=== PATIENT | male | born 1960 | race Caucasian/White ===

== ENCOUNTER 2019-04-03 01:12 | Outpatient (CLI) | payer BC, SELFPAY ==
[2019-04-03 09:17] LABS: ALT 51 U/L (12-78); AST 35 U/L (15-37); Albumin 3.7 g/dL (3.4-5.0); Alkaline Phosphatase 58 U/L (46-116); Anion Gap 12.2 mmol/L (3-11); BUN 12 mg/dL (7-18); Bilirubin, Total 0.3 mg/dL (0.2-1.0); CO2 24.8 mmol/L (21.0-32.0); CREATININE 1.02 mg/dL (0.70-1.30); Calcium 9.2 mg/dL (8.5-10.1); Chloride 94 mmol/L (98-107); Cholesterol 221 mg/dL (50-200); Glucose 99 mg/dL (70-100); HDL Cholesterol 53 mg/dL (40-60); LDL CHOLESTEROL 120 mg/dL (<100); Potassium 4.3 mmol/L (3.5-5.1); Sodium 131 mmol/L (136-145); Total Protein 7.2 g/dL (6.4-8.2); Triglyceride 258 mg/dL (30-150)
[2019-04-03 09:37] LABS: Uric Acid 0.6 mg/dL (3.5-7.2)
== END 2019-04-03 01:32 ==
DX: Z00.00 Encounter for general adult medical examination without abnormal findings (principal); Z13.228 Encounter for screening for other metabolic disorders; Z13.220 Encounter for screening for lipoid disorders; Z13.89 Encounter for screening for other disorder
CPT/HCPCS: 36415; 80053; 80061; 83721; 84550

== ENCOUNTER 2020-06-01 04:08 | Outpatient (CLI) | payer OTHER, SELFPAY ==
[2020-06-01 12:37] LABS: ALT 52 U/L (16-63); AST 36 U/L (15-37); Albumin 3.9 g/dL (3.4-5.0); Alkaline Phosphatase 50 U/L (46-116); Anion Gap 11.7 mmol/L (3-11); BUN 15 mg/dL (7-18); Bilirubin, Total 0.3 mg/dL (0.2-1.0); CO2 24.3 mmol/L (21.0-32.0); CREATININE 0.98 mg/dL (0.70-1.30); Calcium 9.4 mg/dL (8.5-10.1); Calculated LDL 134 mg/dL (<100); Chloride 96 mmol/L (98-107); Cholesterol 219 mg/dL (<200); Glucose 101 mg/dL (74-106); HDL Cholesterol 57 mg/dL (40-60); Potassium 4.6 mmol/L (3.5-5.1); Sodium 132 mmol/L (136-145); Total Protein 7.3 g/dL (6.4-8.2); Triglyceride 142 mg/dL (<150)
== END 2020-06-01 04:28 ==
DX: I10 Essential (primary) hypertension (principal); Z00.00 Encounter for general adult medical examination without abnormal findings; Z13.220 Encounter for screening for lipoid disorders; M1A.0720 Idiopathic chronic gout, left ankle and foot, without tophus (tophi)
CPT/HCPCS: 36415; 80053; 80061

== ENCOUNTER 2020-07-17 23:59 | Emergency (ER) | payer OTHER, SELFPAY ==
[2020-07-18 00:01] VITALS: BP 156/90; PULSE 91; RESP 18; TEMP 36.6; O2SAT 100
--- NOTE | 2020-07-18 00:08 | W.ED.GENAD ---
Discharge Plan Disposition Patient Disposition: HOME Condition: Stable Discharge Details Chief Complaint: HeadInjury Clinical Impression: Laceration of scalp, Head injury, acute, without loss of consciousness, Bleeding of blood vessel Primary Care Provider: Norah Frey ED Provider: Fadumo Aguilar Home Meds and New Rx's Prescriptions: Continued montelukast 10 mg tablet 10 mg PO QPM Qty: 90 RF: 4 lisinopril 10 mg tablet 10 mg PO DAILY Qty: 90 RF: 4 allopurinol 100 mg tablet 100 mg PO DAILY Qty: 90 RF: 4 Discharge Instructions Instructions: Head Injury (ED), Contusion in Adults (ED) Additional Instructions: Keep wound clean and dry. Cover wound with bandage if risk of contamination. Otherwise you can keep the wound open to air if resting at home to allow edges to dry and heal. Follow-up with your primary care doctor or return to the emergency department in 10 days for suture removal. Drink plenty of fluids and get plenty of rest. Take Tylenol as needed and directed for pain. Avoid excessive screen time such as TV, phones or laptops as this may cause a headache. Return immediately to the emergency department if you develop any worsening or new concerning symptoms. Discharge Data Discharge Date/Time-TO BE ENTERED AT DEPARTURE: 07/18/20 02:30 Discharge Physician: Fadumo Aguilar Medical Decision Making 12am -- 59-year-old male with history of daily alcohol abuse presents for mechanical fall down a flight of stairs with head injury after drinking 12 beers throughout the day today. Blood pressure hypertensive, patient alert and oriented, clinically sober. He has a large hematoma to the right side frontoparietal region of his scalp. No other evidence of trauma. No midline spinal tenderness. Lungs clear. Chest and abdomen nontender. No focal deficits. Moving all extremities. Dose of Boostrix ordered. Will refer for CT head/cervical spine/facial bones in addition to chest x-ray and pelvis x-ray. 0130 --after return from radiology, head bandage removed and pulsatile arterial bleeding noted to right frontoparietal scalp. Bleeding stopped with 3 Prolene 5-0 sutures. Remainder of head and neck cleaned and no additional lacerations or active bleeding noted. 0210 --imaging reviewed and negative for acute findings. CT head notes a hematoma with minimal amount of gas within wound. Chest x-ray and pelvis x-ray negative. Case discussed with patient's daughter and his girlfriend Kasia over the phone who were informed of results. Patient was able to ambulate around the ED with normal gait and no acute complaints. Patient picked up by his son and daughter. Advised to return to the ED or primary care doctor in 10 days for suture removal. Medical Records Medical records reviewed: Yes I reviewed the patient's medical records. Imaging Data Radiologic Study: Radiologist's impression: XR Chest, 1 View Exam date and time: 07/18/2020 01:05 Age: 59 years old Clinical indication: Injury or trauma; Initial encounter; Blunt trauma (contusions or hematomas); Injury date: 07/18/20; Injury details: S/P fall, R/O acute disease TECHNIQUE: Imaging protocol: XR of the chest Views: 1 view. COMPARISON: No relevant prior studies available. FINDINGS: Lungs: No consolidation. Pleural space: No significant pleural effusion. No pneumothorax. Heart/Mediastinum: No cardiomegaly. Bones/joints: No acute fracture. IMPRESSION: No acute cardiopulmonary pathology. XR Pelvis Exam date and time: 07/18/2020 01:03 Age: 59 years old Clinical indication: Injury or trauma; Initial encounter; Blunt trauma (contusions or hematomas); Does not apply; Pelvic region; Injury date: 07/18/20; Injury details: Fall down stairs R/O acute FX TECHNIQUE: Imaging protocol: XR pelvis. Views: 1 or 2 view. COMPARISON: No relevant prior studies available. FINDINGS: Bones/joints: No acute fracture or subluxation. Mild degenerative changes in the hips. Soft tissues: Unremarkable. IMPRESSION: No acute bony pathology. CT Head Without Contrast Exam date and time: 07/18/2020 12:48 AM Age: 59 years old Clinical indication: Injury or trauma; Initial encounter; Consciousness not specified; Blunt trauma (contusions or hematomas) and laceration; Without residual foreign body; Injury date: 07/18/20; Injury details: Fall down steps, hematoma R forehead; Patient HX: R/O acute face/intracranial inj/cervical FX TECHNIQUE: Imaging protocol: Computed tomography of the head without contrast. Radiation optimization: All CT scans at this facility use at least one of these dose optimization techniques: automated exposure control; mA and/or kV adjustment per patient size (includes targeted exams where dose is matched to clinical indication); or iterative reconstruction. COMPARISON: No relevant prior studies available. FINDINGS: Brain: Normal. No hemorrhage. Unremarkable white matter. No mass effect. Ventricles: Normal. No ventriculomegaly. Bones/joints: Unremarkable. No acute fracture. Sinuses: Visualized sinuses are unremarkable. No fluid levels. Mastoid air cells: Visualized mastoid air cells are well aerated. Soft tissues: Right anterior scalp soft tissue swelling and hematoma with minimal soft tissue gas. IMPRESSION: Right anterior scalp soft tissue swelling and hematoma with minimal soft tissue gas. no acute intracranial findings. CT Maxillofacial Without Contrast Exam date and time: 07/18/2020 12:48 AM Age: 59 years old Clinical indication: Injury or trauma; Initial encounter; Consciousness not specified; Blunt trauma (contusions or hematomas) and laceration; Without residual foreign body; Injury date: 07/18/20; Injury details: Fall down steps, hematoma R forehead; Patient HX: R/O acute face/intracranial inj/cervical FX TECHNIQUE: Imaging protocol: Computed tomography images of the face without contrast. Radiation optimization: All CT scans at this facility use at least one of these dose optimization techniques: automated exposure control; mA and/or kV adjustment per patient size (includes targeted exams where dose is matched to clinical indication); or iterative reconstruction. COMPARISON: No relevant prior studies available. FINDINGS: Orbits: Orbits are normal. Globes are unremarkable. Bones/joints: No acute fracture. Sinuses: Mucosal thickening and secretions in the maxillary sinuses. Soft tissues: Unremarkable. IMPRESSION: No acute finding. CT Cervical Spine Without Contrast Exam date and time: 07/18/2020 12:48 AM Age: 59 years old Clinical indication: Injury or trauma; Initial encounter; Consciousness not specified; Blunt trauma (contusions or hematomas) and laceration; Without residual foreign body; Injury date: 07/18/20; Injury details: Fall down steps, hematoma R forehead; Patient HX: R/O acute face/intracranial inj/cervical FX TECHNIQUE: Imaging protocol: Computed tomography images of the cervical spine without contrast. Radiation optimization: All CT scans at this facility use at least one of these dose optimization techniques: automated exposure control; mA and/or kV adjustment per patient size (includes targeted exams where dose is matched to clinical indication); or iterative reconstruction. COMPARISON: No relevant prior studies available. FINDINGS: Vertebrae: No acute fracture. Normal alignment. Multilevel degenerative disk disease and facet arthropathy with neuroforaminal and canal stenosis.. Soft tissues: Unremarkable. Lungs: Lung apices are normal. IMPRESSION: No acute findings. HPI General Mode of arrival: EMS. Date/Time Provider Initiated Documentation: 07/18/20 00:28. Limitations to Documentation: no limitations. Information obtained by: patient. HPI Narrative: Patient is a 59-year-old male with a history of gout, hypertension hyperlipidemia who presents for head injury after mechanical fall down a flight of stairs prior to arrival. Patient states he drank approximately 12 beers throughout the day today and missed a step while going down his cellar stairs and fell and hit the right side of his head on concrete. He denies LOC, vomiting but does admit to some headache. He is unsure of his tetanus status. He denies any neck pain, chest pain, abdominal pain, shortness of breath or extremity pain or injury. Related Data Home Medications Medication Instructions Recorded Confirmed allopurinol 100 mg tablet 100 mg PO DAILY #90 tab-cap 06/07/20 07/18/20 lisinopril 10 mg tablet 10 mg PO DAILY #90 tab-cap 06/07/20 07/18/20 montelukast 10 mg tablet 10 mg PO QPM #90 tab 06/07/20 07/18/20 Previous Rx's Medication Instructions Recorded allopurinol 100 mg tablet 100 mg PO DAILY #90 tab-cap 06/07/20 lisinopril 10 mg tablet 10 mg PO DAILY #90 tab-cap 06/07/20 montelukast 10 mg tablet 10 mg PO QPM #90 tab 06/07/20 Allergies Allergy/AdvReac Type Severity Reaction Status Date / Time aspirin Allergy Severe Hives Verified 07/18/20 00:09 clindamycin Allergy Intermediate Rash, Verified 07/18/20 00:09 redness doxycycline Allergy Intermediate Rash, Verified 07/18/20 00:09 redness doxycycline hyclate Allergy Intermediate Rash, Verified 07/18/20 00:09 [From Doryx] redness sulfacetamide Allergy Intermediate Rash, Verified 07/18/20 00:09 redness General Stated Complaint: HeadInjury EVA: 2 Review of Systems All systems reviewed & are unremarkable except as noted in HPI and below Constitutional Constitutional: Reports as per HPI, Denies chills, Denies fever(s) and Reports headache(s) Eyes Eyes: Denies blurry vision ENT Ears, Nose, Mouth, and Throat: Denies dizziness, Reports headache(s), Denies sore throat and Denies throat swelling Cardiovascular Cardiovascular: Denies chest pain and Denies dyspnea Respiratory Respiratory: Denies cough and Denies dyspnea Gastrointestinal Gastrointestinal: Denies abdominal pain, Denies diarrhea and Denies vomiting Genitourinary Genitourinary: Denies hematuria and Denies dysuria Musculoskeletal Musculoskeletal: Denies back pain and Denies numbness Integumentary/Breasts Skin/Breast: Denies lesions and Denies rash Neurologic Neurologic: Denies dizziness, Reports headache(s), Denies localized weakness and Denies numbness Allergic/Immunologic Allergic/Immunologic: Denies throat swelling [facility] Medical History (Updated 07/18/20 @ 02:14 by Fadumo Aguilar DO) Chronic gout of left foot (Chronic 11/28/17) Encounter for annual physical exam (Acute) Essential hypertension (Chronic 02/07/17) Gout Hyperlipidemia (Acute) Insomnia disorder (Acute) Skin mole (Acute) Surgical History Repair of inguinal hernia Repair of umbilical hernia Family History Mother , 53 Throat cancer Father , 87 COPD (chronic obstructive pulmonary disease) Heart disease Sister No problems noted. Sister Breast cancer Sister Breast cancer Maternal Grandfather No problems noted. Paternal Grandfather No problems noted. Maternal Grandmother No problems noted. Paternal Grandmother No problems noted. Son No problems noted. Daughter No problems noted. Social History Smoking/Tobacco Use Status: Former Tobacco Use Quit status: quit date established Second Hand Exposure: No Alcohol Intake: current Alcohol Intake frequency: 3 or more drinks per day Alcohol type: beer Drug use: Never Substance use type: does not use Counseling given: No Counseling provided: none Caregiver/Support person: No Household members: significant other and children Housing: house Do you need help understanding health information?: Never Pets and animals: Yes Pets and animals: dog(s) and horse(s) Sexually active: Yes Do you think of yourself as: straight/heterosexual Current gender identity: male What is your relationship status?: living with partner How often do you talk on the phone with friends or family?: once per week How often do you get together with friends or relatives?: once per week How often do you attend islam or alevism services?: decline to answer Do you belong to any clubs or organized social groups?: no Panel score (0-1 are the most socially isolated patients): 1 What type of physical activity do you participate in: decline to answer Duration: decline to answer Frequency: decline to answer Sylvie/Congregational: Taoist Special sylvie needs: No Seatbelt use: always Helmet use: Yes Helmet use: always Drive 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 Hematoma. There is a boggy area in center Ears: hearing grossly normal bilaterally, external ears normal and TM's normal bilaterally General nose exam: external nose normal Face and sinus: normal facial exam Mouth: oral mucosae normal Teeth and gingiva: dentition normal Throat: posterior oropharynx normal Eyes General: appearance normal, both eyes and all related structures Eyelids: eyelids normal Pupils: PERRL EOM: EOM intact bilaterally Neck Neck: normal visual inspection Lymphatic: no lymphadenopathy noted Chest Chest: normal inspection of the chest, normal palpation of entire chest wall and no tenderness Resp Effort & Inspection: normal respiratory effort and able to speak in complete sentences Auscultation: clear to auscultation bilaterally Cardio Rate: regular rate Rhythm: regular rhythm GI Inspection: normal to inspection Palpation: soft, not firm, no guarding, no hepatosplenomegaly, no masses and nontender Auscultation: normal bowel sounds Back/Spine/Pelvis Back: no CVA tenderness Skin General skin exam: no rashes or lesions noted Neuro General: patient alert, patient awake and patient oriented x3 Cognition: normal cognition Speech: speech normal Gait: normal gait Motor: muscle tone normal throughout and strength 5/5 throughout Sensory Exam: no sensory deficits noted Extrem General: normal to inspection, full ROM and capillary refill normal Psych Appearance: grossly normal Mental Status: mental status grossly normal Speech and Movement: speech and movement normal Affect: normal affect Thought Process: normal Course Vital Signs Vital signs: Vital Signs Temperature 97.9 F 07/18/20 00:01 Pulse 91 H 07/18/20 00:01 Respiratory Rate 18 07/18/20 00:01 Blood Pressure 156/90 H 07/18/20 00:01 Pulse Oximetry 100 07/18/20 00:01 Temperature 97.9 F 07/18/20 00:01 Temperature Source Temporal Artery Scan 07/18/20 00:01 Pulse 91 H 07/18/20 00:01 Respiratory Rate 18 07/18/20 00:01 Blood Pressure 156/90 H 07/18/20 00:01 Blood Pressure Position Supine 07/18/20 00:01 Pulse Oximetry 100 07/18/20 00:01 Oxygen Delivery Method Room Air 07/18/20 00:01 Oxygen Flow Rate 0 07/18/20 00:01 Procedures Laceration Laceration 1: Site: scalp Side (If applicable): right Size (cm): 0.2 Description: other (pinpoint arterial bleeding) Depth: simple, single layer Local Anesthetic: Lidocaine 1% and with Epi Amount of anesthesia used (mL): 6 Pre-repair: wound explored, irrigated extensively and deep structures intact Skin layer closed with: other (prolene) Size (cm): 5-0 Number of sutures: 3 Technique: other (overlapping to close arterial bleed)
--- NOTE | 2020-07-18 00:15 | DI.RAD_ITS ---
EXAM: XR PELVIS AP CLINICAL HISTORY: s/p fall down steps, r/o acute fracture. TECHNIQUE: 2D digital imaging was performed. COMPARISON: No exams were available for comparison FINDINGS: BONES: No acute fracture is present. No bony destructive lesion is seen. JOINTS: No dislocation present. Mild superior hip joint space narrowing is present. Mild degenerative changes both hips. SOFT TISSUE: Normal. IMPRESSION: Unremarkable radiographs of the pelvis. DATA REPOSITORY: RADIATION DOSE DELIVERED:
--- NOTE | 2020-07-18 00:15 | DI.CT_ITS ---
EXAM: CT HEAD CERV SPINE FACIAL WO CLINICAL HISTORY: fall down steps, hematoma R forehead. TECHNIQUE: Imaging Protocol: Axial computed tomography images with coronal and sagittal reformatted images were created and reviewed COMPARISON: No exams were available for comparison FINDINGS: Head CT Ventricles and Extra axial spaces: Normal in size and morphology for the patient's age. Hemorrhage: None. Cerebral parenchyma: Normal. Midline shift: None. Brainstem/Cerebellum: Normal. Calvarium: Normal. Right anterior scalp soft tissue swelling and laceration. Visualized Paranasal sinuses/Mastoids: Opacification of the right maxillary sinus. Mucous retention at the floor of the left maxillary sinus. Mastoid air cells are clear.. Cervical Spine CT BONES: Vertebral body heights are maintained. Alignment is normal. There is no evidence of acute frac ture. Degenerative disc changes and facet degenerative changes are seen . SOFT TISSUES: No paraspinal hematoma. The airway appears intact. No pneumothorax is seen at the lung apices. Facial CT: No facial fracture is seen. The globes appear intact. There is opacification of the right maxillary sinus and mucous retention at the floor of the left maxillary sinus. There is some mucosal thickeni ng ethmoid air cells. There is dental disease. IMPRESSION: Head CT: Scalp hematoma. No acute intracranial abnormality. C-spine CT: Degenerative changes, no acute abnormality. Facial CT: No fracture. Sinus disease. Incidental RADIATION DOSE DELIVERED: LINK-TO-SR Total DLP DATA REPOSITORY: All CT scans at this facility are submitted to the National Radiology Data Registry (NRDR) Dose Index Registry (DIR) with the [employer] (ACR). RADIATION OPTIMIZATION: All CT scans at this facility use at least one of these dose optimization te chniques: automated exposure control; mA and/or kV adjustment per patient size (includes targeted exa ms where dose is matched to clinical indication); or iterative reconstruction.
--- NOTE | 2020-07-18 01:10 | DI.RAD_ITS ---
EXAM: XR CHEST 1V IN DI DEPT CLINICAL HISTORY: s/p fall, r/o acute disease TECHNIQUE: 2D digital imaging was performed. COMPARISON: No exams were available for comparison FINDINGS: LUNGS: Clear. No pleural abnormality seen. HEART: Normal. MEDIASTINUM: Normal. OTHER FINDINGS: None. IMPRESSION: No acute pulmonary findings. DATA REPOSITORY: RADIATION DOSE DELIVERED:
--- NOTE | 2020-07-18 01:18 | DI.VRAD_ITS ---
PROCEDURE INFORMATION: Exam: XR Pelvis Exam date and time: 07/18/2020 01:03 Age: 59 years old Clinical indication: Injury or trauma; Initial encounter; Blunt trauma (contusions or hematomas); Does not apply; Pelvic region; Injury date: 07/18/20; Injury details: Fall down stairs R/O acute FX TECHNIQUE: Imaging protocol: XR pelvis. Views: 1 or 2 view. COMPARISON: No relevant prior studies available. FINDINGS: Bones/joints: No acute fracture or subluxation. Mild degenerative changes in the hips. Soft tissues: Unremarkable. IMPRESSION: No acute bony pathology. Dictated and Authenticated by: Eliana Riley MD. Ordering:PROMISE Thorne MD
--- NOTE | 2020-07-18 01:19 | DI.VRAD_ITS ---
PROCEDURE INFORMATION: Exam: CT Head Without Contrast Exam date and time: 07/18/2020 12:48 AM Age: 59 years old Clinical indication: Injury or trauma; Initial encounter; Consciousness not specified; Blunt trauma (contusions or hematomas) and laceration; Without residual foreign body; Injury date: 07/18/20; Injury details: Fall down steps, hematoma R forehead; Patient HX: R/O acute face/intracranial inj/cervical FX TECHNIQUE: Imaging protocol: Computed tomography of the head without contrast. Radiation optimization: All CT scans at this facility use at least one of these dose optimization techniques: automated exposure control; mA and/or kV adjustment per patient size (includes targeted exams where dose is matched to clinical indication); or iterative reconstruction. COMPARISON: No relevant prior studies available. FINDINGS: Brain: Normal. No hemorrhage. Unremarkable white matter. No mass effect. Ventricles: Normal. No ventriculomegaly. Bones/joints: Unremarkable. No acute fracture. Sinuses: Visualized sinuses are unremarkable. No fluid levels. Mastoid air cells: Visualized mastoid air cells are well aerated. Soft tissues: Right anterior scalp soft tissue swelling and hematoma with minimal soft tissue gas. IMPRESSION: Right anterior scalp soft tissue swelling and hematoma with minimal soft tissue gas. no acute intracranial findings. PROCEDURE INFORMATION: Exam: CT Maxillofacial Without Contrast Exam date and time: 07/18/2020 12:48 AM Age: 59 years old Clinical indication: Injury or trauma; Initial encounter; Consciousness not specified; Blunt trauma (contusions or hematomas) and laceration; Without residual foreign body; Injury date: 07/18/20; Injury details: Fall down steps, hematoma R forehead; Patient HX: R/O acute face/intracranial inj/cervical FX TECHNIQUE: Imaging protocol: Computed tomography images of the face without contrast. Radiation optimization: All CT scans at this facility use at least one of these dose optimization techniques: automated exposure control; mA and/or kV adjustment per patient size (includes targeted exams where dose is matched to clinical indication); or iterative reconstruction. COMPARISON: No relevant prior studies available. FINDINGS: Orbits: Orbits are normal. Globes are unremarkable. Bones/joints: No acute fracture. Sinuses: Mucosal thickening and secretions in the maxillary sinuses. Soft tissues: Unremarkable. IMPRESSION: No acute finding. PROCEDURE INFORMATION: Exam: CT Cervical Spine Without Contrast Exam date and time: 07/18/2020 12:48 AM Age: 59 years old Clinical indication: Injury or trauma; Initial encounter; Consciousness not specified; Blunt trauma (contusions or hematomas) and laceration; Without residual foreign body; Injury date: 07/18/20; Injury details: Fall down steps, hematoma R forehead; Patient HX: R/O acute face/intracranial inj/cervical FX TECHNIQUE: Imaging protocol: Computed tomography images of the cervical spine without contrast. Radiation optimization: All CT scans at this facility use at least one of these dose optimization techniques: automated exposure control; mA and/or kV adjustment per patient size (includes targeted exams where dose is matched to clinical indication); or iterative reconstruction. COMPARISON: No relevant prior studies available. FINDINGS: Vertebrae: No acute fracture. Normal alignment. Multilevel degenerative disk disease and facet arthropathy with neuroforaminal and canal stenosis.. Soft tissues: Unremarkable. Lungs: Lung apices are normal. IMPRESSION: No acute findings. Dictated and Authenticated by: Hilton Jeffers MD. Ordering:PROMISE Thorne MD
--- NOTE | 2020-07-18 01:20 | DI.VRAD_ITS ---
PROCEDURE INFORMATION: Exam: XR Chest, 1 View Exam date and time: 07/18/2020 01:05 Age: 59 years old Clinical indication: Injury or trauma; Initial encounter; Blunt trauma (contusions or hematomas); Injury date: 07/18/20; Injury details: S/P fall, R/O acute disease TECHNIQUE: Imaging protocol: XR of the chest Views: 1 view. COMPARISON: No relevant prior studies available. FINDINGS: Lungs: No consolidation. Pleural space: No significant pleural effusion. No pneumothorax. Heart/Mediastinum: No cardiomegaly. Bones/joints: No acute fracture. IMPRESSION: No acute cardiopulmonary pathology. Dictated and Authenticated by: Eliana Riley MD. Ordering:PROMISE Thorne MD
== END 2020-07-18 02:30 | disposition home or self-care (01) ==
LOC: ER 07-18 03:01
PROVIDERS: Emergency Provider Physician Assistant
DX: S01.01XA Laceration without foreign body of scalp, initial encounter (principal); S09.90XA Unspecified injury of head, initial encounter; S29.9XXA Unspecified injury of thorax, initial encounter; S30.91XA Unspecified superficial injury of lower back and pelvis, initial encounter; W10.8XXA Fall (on) (from) other stairs and steps, initial encounter; F10.10 Alcohol abuse, uncomplicated; I10 Essential (primary) hypertension
CPT/HCPCS: 90471; 99284; 70450; 70486; 71045; 72125; 72170; 99285

== ENCOUNTER 2021-07-25 01:06 | Outpatient (CLI) | payer OTHER, SELFPAY ==
[2021-07-25 12:40] LABS: ALT 57 U/L (16-63); AST 40 U/L (15-37); Alkaline Phosphatase 58 U/L (46-116); Anion Gap 11.9 mmol/L (3-11); BUN 12 mg/dL (7-18); Bilirubin, Total 0.6 mg/dL (0.2-1.0); CO2 23.1 mmol/L (21.0-32.0); CREATININE 1.1 mg/dL (0.70-1.30); Chloride 95 mmol/L (98-107); Cholesterol 230 mg/dL (<200); Glucose 101 mg/dL (74-106); HDL Cholesterol 36 mg/dL (40-60); Potassium 5.3 mmol/L (3.5-5.1); Sodium 130 mmol/L (136-145); Total Protein 7.7 g/dL (6.4-8.2); Triglyceride 424 mg/dL (<150)
[2021-07-25 12:43] LABS: Calcium 9.1 mg/dL (8.5-10.1)
[2021-07-25 12:53] LABS: LDL CHOLESTEROL 105 mg/dL (<100)
== END 2021-07-25 01:07 | disposition home or self-care (01) ==
LOC: LOS 01:06
DX: I10 Essential (primary) hypertension (principal); F10.10 Alcohol abuse, uncomplicated; Z00.00 Encounter for general adult medical examination without abnormal findings
CPT/HCPCS: 36415; 80053; 80061; 83721

== ENCOUNTER 2022-07-31 01:29 | Outpatient (CLI) | payer BC, SELFPAY ==
[2022-07-31 12:57] LABS: ALT 55 U/L (16-63); AST 40 U/L (15-37); Albumin 3.8 g/dL (3.4-5.0); Alkaline Phosphatase 51 U/L (46-116); Anion Gap 10.3 mmol/L (3-11); BUN 9 mg/dL (7-18); Bilirubin, Total 0.5 mg/dL (0.2-1.0); CO2 23.7 mmol/L (21.0-32.0); Calcium 9.5 mg/dL (8.5-10.1); Calculated LDL 130 mg/dL (<100); Chloride 94 mmol/L (98-107); Cholesterol 220 mg/dL (<200); Estimated GFR 86.16 (mL/min/1.73m2); Glucose 100 mg/dL (74-106); HDL Cholesterol 66 mg/dL (40-60); Sodium 128 mmol/L (136-145); Total Protein 8.1 g/dL (6.4-8.2); Triglyceride 120 mg/dL (<150)
== END 2022-07-31 01:30 | disposition home or self-care (01) ==
LOC: LOS 01:30
DX: E78.5 Hyperlipidemia, unspecified (principal); Z00.00 Encounter for general adult medical examination without abnormal findings
CPT/HCPCS: 36415; 80053; 80061

== ENCOUNTER 2023-04-16 08:20 | Outpatient (CLI) | payer BC, SELFPAY ==
--- NOTE | 2023-04-16 08:15 | RT.EKG_ITS ---
APPROVED REPORT Exam: Resting ECG Reason for Exam: fatigue Patient Location: O HR:96 bpm ECG Measurements Heart Rate 96 AXIS AR 162 P 78 QRSd 95 QRS -78 QT 361 T 57 QTc 457 Conclusion Sinus rhythm...normal P axis, V-rate 50- 99 Left anterior fascicular block Low voltage
== END 2023-04-16 08:21 | disposition home or self-care (01) ==
LOC: DI.CM 08:22
PROVIDERS: PCP Nurse Practitioner Family; Visit Provider Nurse Practitioner Family
DX: R00.0 Tachycardia, unspecified (principal); G93.32 Myalgic encephalomyelitis/chronic fatigue syndrome
CPT/HCPCS: 93010

== ENCOUNTER 2023-04-16 19:18 | Outpatient (REF) | payer BC, SELFPAY ==
[2023-04-16 13:06] LABS: Abs Immature Grans 0.01 10^3/uL (0.0-0.06); Absolute Basophil Count 0.03 10^3/uL (0.0-0.2); Absolute Eosinophil Count 0.01 10^3/uL (0.0-0.7); Absolute Lymphocyte Count 0.91 10^3/uL (1.2-3.4); Absolute Neutrophil Count 2.36 10^3/uL (1.2-6.7); Basophils % 0.8; Eosinophils % 0.3; HCT 43.6 % (40.0-50.0); HGB 16.1 g/dL (13.5-17.5); Immature Grans % 0.3; Lymphocytes % 23.8; MCH 33.5 pg (27.0-33.0); MCHC 36.9 % (32.0-36.0); MCV 91 fL (80-95); MPV 9.9 fL (8.0-11.0); Monocytes % 13.1; Neutrophils % 61.7; Platelet Count 103 10^3/uL (130-400); RDW 13.2 % (11.8-14.1); RDW-SD 44.3 fL; WBC 3.82 10^3/uL (4.4-10.8)
[2023-04-16 14:05] LABS: Albumin 3.4 g/dL (3.4-5.0); Alkaline Phosphatase 139 U/L (46-116); Anion Gap 12.3 mmol/L (3-11); BUN 9 mg/dL (7-18); Bilirubin, Total 1.8 mg/dL (0.2-1.0); CO2 21.7 mmol/L (21.0-32.0); CREATININE 0.9 mg/dL (0.70-1.30); Chloride 88 mmol/L (98-107); Estimated GFR 97.17 (mL/min/1.73m2); Glucose 130 mg/dL (74-106); Potassium 3.9 mmol/L (3.5-5.1); TSH (W/Ref FT4) 1.22 uIU/mL (0.36-3.74)
[2023-04-16 15:57] LABS: ALT 530 U/L (16-63); AST 917 U/L (15-37); Sodium 122 mmol/L (136-145)
== END 2023-04-16 19:19 | disposition home or self-care (01) ==
LOC: LBN 19:18
PROVIDERS: PCP Nurse Practitioner Family; Visit Provider Nurse Practitioner Family
DX: R53.83 Other fatigue (principal); R63.4 Abnormal weight loss
CPT/HCPCS: 80053; 84443; 85025

== ENCOUNTER 2023-04-19 00:21 | Outpatient (CLI) | payer BC, SELFPAY ==
--- NOTE | 2023-04-19 06:30 | DI.CT_ITS ---
Exam(s) CT CHEST/ABD/PEL W EXAM: CT CHEST/ABD/PEL W CLINICAL HISTORY: increasing sx for 15 months,abnl wt loss,abnl labs,r63.4 TECHNIQUE: Imaging Protocol: Axial computed tomography images with coronal and sagittal reformatted images were created and reviewed CONTRAST MATERIAL: Intravenous: Omnipaque 350 contrast volume:100 mL Oral: Yes COMPARISON: CR,XR XR CHEST 1V IN DI DEPT from 07/18/2020 FINDINGS: CHEST: Tracheobronchial tree: Patent where visualized. Pulmonary parenchyma: No consolidation or dominant measurable mass. No architectural distortion. Visualized thyroid gland: Unremarkable. Mediastinum and Jennifer: No dominant adenopathy or fluid collection. The esophagus is unremarkable. Pleura: No effusion or pneumothorax. Heart: The heart is not dilated. No coronary artery calcifications are seen. No pericardial effusion. Pulmonary arteries: No central or 1st order pulmonary embolus is identified. Aorta: Thoracic aorta non-dilated. Mild atherosclerosis. No evidence of dissection. Lymph nodes: Within normal limits. Soft tissues: Unremarkable. Bones:Within normal limits for the patient's age. ABDOMEN: Liver: There is decreased attenuation of the liver suggesting fatty infiltration. There is hepatomeg anurag. No measurable mass. Portal, Superior Mesenteric, and Splenic Veins: Unremarkable. Gallbladder and Biliary Tract: No radiodense calculus or dilation. Pancreas: Normal density, no abnormal calcifications or inflammatory process. Spleen: Normal. Adrenals: No masses seen. Kidneys: Normal size, contour and axis. No radiodense stones or obstructive uropathy. No masses seen. Abdominal Aorta: Abdominal portion non-dilated. Atherosclerosis. Bowel: No obstruction or bowel wall thickening. Appendix is unremarkable. Peritoneal Cavity: No ascites, collection or mesenteric inflammatory response. No free air. Lymph Nodes: Within normal limits. Bones: Within normal limits for the patient's age. Soft Tissues: Unremarkable. PELVIS: Bladder: Symmetric distention, no gross wall thickening. Reproductive Organs: Unremarkable as visualized. Lymph Nodes: Within normal limits. Bones: Within normal limits. No aggressive osseous lesions are seen in the bones. IMPRESSION: 1. No acute pulmonary process. 2. Hepatomegaly and fatty infiltration of the liver. 3. No acute abdominal or pelvic process. RADIATION DOSE DELIVERED: 1,200.37mGy.cm Total DLP DATA REPOSITORY: All CT scans at this facility are submitted to the National Radiology Data Registry (NRDR) Dose Index Registry (DIR) with the [employer] (ACR). RADIATION OPTIMIZATION: All CT scans at this facility use at least one of these dose optimization te chniques: automated exposure control; mA and/or kV adjustment per patient size (includes targeted exa ms where dose is matched to clinical indication); or iterative reconstruction.
[2023-04-19] MEDS: Barium Sulfate 2% W/V-Berry Smoothie 450 ML BTL PO ×2 (08:37→08:38)
[2023-04-19] MEDS: Omnipaque 350 MG/ML 100 ML BTL IJ (10:06)
[2023-04-19] MEDS: Normal Saline Flush 10 ML SYR IJ (10:12)
[2023-04-19 10:40] LABS: Sodium, Urine 37 mmol/L
[2023-04-19 20:09] LABS: Osmolality, Urine 576 mOsm/kg (150-1150)
[2023-04-22 11:22] LABS: Lyme Ab w Rflx to Lyme Confirm Negative (Negative)
[2023-04-22 11:25] LABS: Hepatitis A Antibody IgM Negative (Negative); Hepatitis B Core Antibody Negative (Negative); Hepatitis B surface Ag Negative (Negative); Hepatitis C Ab w Rflx HCV PCR Negative (Negative)
[2023-04-23 17:19] LABS: Anaplasma phagocytophilum Negative (Negative); B. miyamotoi PCR Negative (Negative); Babesia divergens/MO-1 Negative (Negative); Babesia duncani Negative (Negative); Babesia microti Negative (Negative); Ehrlichia chaffeensis Negative (Negative); Ehrlichia ewingii/canis Negative (Negative); Ehrlichia muris eauclairensis Negative (Negative)
== END 2023-04-19 00:41 ==
LOC: DI 00:22
PROVIDERS: PCP Nurse Practitioner Family; Visit Provider Nurse Practitioner Family
DX: R93.2 Abnormal findings on diagnostic imaging of liver and biliary tract (principal); R79.89 Other specified abnormal findings of blood chemistry; R63.4 Abnormal weight loss; R53.83 Other fatigue
CPT/HCPCS: 74177; 83935; 86704; 86709; 86803; 87340; 87798; 71260; 84300; 86618; J3490

== ENCOUNTER 2023-04-26 12:40 | Outpatient (REF) | payer BC, SELFPAY ==
[2023-04-26 12:45] LABS: Lab Add On Test DONE
[2023-04-26 13:04] LABS: Abs Immature Grans 0.02 10^3/uL (0.0-0.06); Absolute Basophil Count 0.04 10^3/uL (0.0-0.2); Absolute Eosinophil Count 0.02 10^3/uL (0.0-0.7); Absolute Lymphocyte Count 0.78 10^3/uL (1.2-3.4); Absolute Monocyte Count 0.69 10^3/uL (0.1-0.8); Eosinophils % 0.5; HGB 14.1 g/dL (13.5-17.5); Immature Grans % 0.5; Lymphocytes % 20.3; MCH 34.1 pg (27.0-33.0); MCHC 37.1 % (32.0-36.0); MCV 92 fL (80-95); MPV 9.8 fL (8.0-11.0); Monocytes % 17.9; Neutrophils % 59.8; Platelet Count 128 10^3/uL (130-400); RBC 4.14 10^6/uL (4.36-5.78); RDW 13.2 % (11.8-14.1); RDW-SD 44.7 fL; WBC 3.85 10^3/uL (4.4-10.8)
[2023-04-26 13:16] LABS: Albumin 2.9 g/dL (3.4-5.0); Alkaline Phosphatase 147 U/L (46-116); Anion Gap 9.8 mmol/L (3-11); BUN 10 mg/dL (7-18); Bilirubin, Total 0.8 mg/dL (0.2-1.0); CO2 23.2 mmol/L (21.0-32.0); CREATININE 0.8 mg/dL (0.70-1.30); Calcium 7.9 mg/dL (8.5-10.1); Chloride 91 mmol/L (98-107); Estimated GFR 100.69 (mL/min/1.73m2); Glucose 147 mg/dL (74-106); Potassium 4.1 mmol/L (3.5-5.1); Total Protein 7.1 g/dL (6.4-8.2)
[2023-04-26 13:21] LABS: Sodium 124 mmol/L (136-145)
[2023-04-26 13:30] LABS: ALT 63 U/L (16-63); AST 200 U/L (15-37)
[2023-04-26 13:32] LABS: Hemoglobin A1C 5.3 % (<5.7)
[2023-04-27 11:19] LABS: HIV-1/2 Ag & Ab Screen Negative (Negative)
== END 2023-04-26 12:41 | disposition home or self-care (01) ==
LOC: LBN 12:40
PROVIDERS: PCP Nurse Practitioner Family; Visit Provider Nurse Practitioner Family
DX: R63.4 Abnormal weight loss (principal); R79.89 Other specified abnormal findings of blood chemistry
CPT/HCPCS: 80053; 87389; 83036; 85025

== ENCOUNTER 2023-05-29 00:28 | Outpatient (CLI) | payer BC, SELFPAY ==
--- NOTE | 2023-05-29 08:45 | DI.US_ITS ---
APPROVED REPORT EXAM: Comprehensive 2D, Doppler, and color-flow Echocardiogram Patient Location: Out-Patient Supercalender Operator: Eric Frost RDMS, RVT Indications: increasing fatigue, essential HTN, old myocardial infarct Other Information Study Quality: Fair. Technically limited study due to body habitus. Conclusion Normal left ventricular wall thickness and chamber size. Ejection fraction is 60 to 65%. The wall m otion is hyperdynamic Normal right ventricular size and systolic function Both atria are normal in size There is no structural or hemodynamically significant valvular disease Estimated right ventricular systolic pressure is 22 mmHg Wall motion Left Ventricle Technically limited parasternal imaging. The left ventricle visually appears grossly normal in size. The left ventricular systolic function is normal. The left ventricular ejection fraction is within th e normal range. Ventricle is hyperdynamic There is no ventricular septal defect visualized. LVEF is 6 0-65%. Right Ventricle The right ventricle is normal size. The RVSP is 22.2mmHg. Atria The left atrium size is normal. The right atrium size is normal. The interatrial septum is intact wit h no evidence for an atrial septal defect. Aortic Valve Aortic valve is trileaflet. There is no aortic valvular stenosis. No aortic regurgitation is present. Mitral Valve The mitral valve is normal in structure. No evidence of mitral valve stenosis. There is no mitral elvin ve regurgitation noted. Tricuspid Valve The tricuspid valve is normal in structure. There is no tricuspid valve stenosis. Mild tricuspid regu rgitation. Pulmonic Valve The pulmonary valve is normal in structure. There is no pulmonic valvular stenosis. There is no pulmo tony valvular regurgitation. Great Vessels The aortic root is normal in size. Ascending aorta is not well visualized. Aortic arch is not well vi sualized. IVC is normal in size and collapses >50% with inspiration. Pericardium There is no pericardial effusion. 2D Dimensions Ao Root d 4.05 cm M: 3.1 - 3.7 LV Vol A2C d MOD 57.5 mL LVEF (Vann's) 60.43 % M: 52 - 72 LV Vol A4C d MOD 56.3 mL LV Volume 43.31 mL M: 62 - 150 LV EF A4C MOD 59.0 % LV Volume Index 22.55 mL/m2 M: 34 - 74 LV EF A2C MOD 61.9 % LV Vol Biplane MOD 56.9 mL LV EF Biplane MOD 60.4 % SV 34.40 mL SV Index 17.94 mL/m2 M-Mode TAPSE 2.10 cm (M/F) >1.7 LV Diastology MV E' medial 0.135 (>0.07 m/s) E/A Ratio 0.7 LV E/e MED 4.10 (<14) MV E Vmax 0.56 (0.4-1.3 m/s) MV E' lateral 0.090 (>0.1 m/s) MV A Vmax 0.80 (0.4-1.3 m/s) LV E/e LAT 6.20 (<14) MV E/A Ratio 0.70 MV E/E' medial 4.12 MV E/E' lateral 6.22 Aortic Valve LVOT Area 3.91 cm2 AoV Area Vmax 3.75 cm2 LVOT Vmax 0.95 m/s AoV Area/ BSA (Vmax) 1.95 cm2/m2 LVOT Mean Leland. 0.60 m/s LORA Mean Leland. 3.30 cm2 LVOT Peak Grad 3.6 mmHg LORA Mean Leland. Index 1.72 cm2/m2 LVOT Mean Grad 1.7 mmHg LVOT VTI 0.171 m LVOT Diam s 2.20 cm AoV Vmax 0.99 m/s Velocity Ratio 0.96 AoV Mean Leland. 0.71 m/s AoV Peak Grad 4.0 mmHg LVOT SV 67.01 mL AoV Mean Grad 2.2 mmHg AoV VTI 0.152 m AoV Area VTI 4.39 cm2 AoV Area/ BSA (VTI) 2.29 cm/m2 Mitral Valve MV DT 137 (160-240 msec) MV PHT 40 msec MV Area PHT 5.55 cm2 MV VTI 0.216 m MV Area VTI 3.10 (4.0-6.0 cm2) Tricuspid Valve TR Peak Grad 19.1 mmHg TR Vmax 2.19 m/s RA Pressure 3.00 mmHg RVSP (TR) 22.2 mmHg
== END 2023-05-29 00:48 ==
PROVIDERS: PCP Nurse Practitioner Family; Visit Provider Nurse Practitioner Family
DX: I10 Essential (primary) hypertension (principal); I25.2 Old myocardial infarction; R53.83 Other fatigue
CPT/HCPCS: 93306

== ENCOUNTER 2023-06-06 06:03 | Day surgery (SDC) | payer BC, SELFPAY ==
--- NOTE | 2023-06-05 21:50 | W.COLOREPORT ---
Date of service: 06/06/23 Time of Service: 08:29 Colonoscopy Report Date of procedure: 06/06/23 Pre-op diagnosis general: +colocgurad Post-op diagnosis procedure note: same Surgeon: Kendal Byrnes Anesthesia Type: General:No Airway Estimated blood loss (mL): 0 Pathology: other Complications: None Disposition: same day Prep: Miralax/Dulcolax Retraction Time: 11 Procedure Description: After informed consent was obtained the patient was taken to the procedure room and placed in a left decubitous position. Monitors were applied and a time out was done. The patients name, date of , procedure, allergies to medications and metal in their body was reviewed. The patient was then sedated. Once sedated and comfortable a rectal exam was done. External exam was normal. Internal exam revealed a normal sphincter tone and no palpable masses. The scope was then introduced and retrofelexed. No internal hemorrhoids were identified. The scope was then advanced to the cecum w/out difficulty. The TI and appendiceal orifice were identified. The prep was BBPS 3 in the left colon and BBPS 2 in the transverse and right colon for a total of 7. The scope was then slowly retracted over 11 minutes back into the rectum. There are no polyps, AVMs, diverticula visualized. The scope was removed and the patient was woken up and taken back to Same day surgery in stable condition. The patient tolerated the procedure well and there were no immediate complications. Follow up: The patient should follow up in 10 years unless they develop changes in bowel habits or other new gastrointestinal complaints.
--- NOTE | 2023-06-05 21:51 | PDOC.DSDIS_ITS ---
Date of service: 06/06/23 Time of Service: 08:34 Discharge Plan Disposition Patient Disposition: Home Condition: Good Discharge Details Reason For Visit: olon and stomach scope Attending Provider: Kendal Byrnes Primary Care Provider: Kaushik Thibodeaux Home Meds and New Rx's Prescriptions: New pantoprazole [Protonix] 40 mg tablet,delayed release (DR/EC) 40 mg PO DAILY Qty: 30 12RF Continued allopurinol 100 mg tablet 100 mg PO DAILY Qty: 90 4RF loratadine [Allergy Relief (loratadine)] 10 mg tablet See Rx Instructions .ROUTE .COMPLEX Qty: 90 4RF Dose Instruction: TAKE 1 TABLET BY MOUTH DAILY Rx Instructions: TAKE 1 TABLET BY MOUTH DAILY lisinopril 10 mg tablet 10 mg PO DAILY Qty: 90 3RF montelukast 10 mg tablet 10 mg PO DAILY Discontinued polyethylene glycol 3350 17 gram/dose powder 238 g PO ONCE Qty: 238 0RF Rx Instructions: take per colonoscopy instructions bisacodyl [Dulcolax (bisacodyl)] 5 mg tablet,delayed release (DR/EC) 5 mg PO ONCE Qty: 4 0RF Rx Instructions: take per colonoscopy instructions Discharge Instructions Instructions: GERD (Gastroesophageal Reflux Disease) (GEN) Additional Instructions: DSU Colonoscopy Post- Op Instructions Instructions for Everyone who is given Anesthesia: For your safety, please do the following for the next twenty-four (24) hours: *Do Not operate a motor vehicle (car, truck, motorcycle, etc.) *Do Not drink alcoholic beverages or use any recreational drugs for the first 24 hours or while taking pain medications. The medications in your body may have a reaction that can be dangerous. *Do Not make any important decisions or sign any important papers. Findings: -gastritis -esophagitis Continue with lifestyle modifications: no alcohol, tobacco products, Aspirin or NSAID's (ibuprofen, Motrin, Naprosyn, aleve, etc), soda pop/any carbonated beverages, caffeine (including tea & chocolate), and acidic foods, (tomatoes, citrus, onions, peppermints) spicy or fried/fatty foods. Do not lie down for 30 minutes after eating, and do not eat 2 hours prior to bedtime. Avoid wearing tight fitting clothing/ belts. Stop drinking alcohol. Follow up: PCP in 2 weeks time 1. No lifting over 20 pounds or strenuous activity for the first 24 hours after your procedure. After 24 hours there are no restrictions on your activity but you may feel fatigued for a few days. 2. After you arrive home you may have a light meal and return to your normal diet as you can tolerate it without feeling sick to your stomach. 3. You may have a bloated, gaseous feeling in your belly (abdomen) after a colonoscopy. Passing gas and belching will help. Walking or lying down on your left side with your knees flexed may relieve the discomfort. Call the office at [phone] (Office) or [phone] (Hospital) right away if you notice any of the following: a.Vomiting of blood or ?coffee ground stools?. b.Rectal bleeding 1Tbsp, blood clots or continuous bleeding. c.Severe belly (abdominal) pain. d.A hard distended belly (abdomen) and an inability to pass gas. 4. Please don?t expect to have a normal BM (bowel movement) for 2-3 days after your procedure. 5. If there are questions regarding the findings of your procedure, please contact your doctor 6. If you are unable to contact your doctor with a problem, contact the hospital at [phone]. 7. Continue all your regular medications unless directed otherwise. I understand the above instructions and have no questions. Signature of Patient or Adult Escort Name of Responsible Adult Escort Signature of Nurse Date/Time Stand Alone Forms: Anesthesia Discharge Kory Foyjosh (DSU) Activity:: See above Diet:: See above Discharge Orders Discharge Orders: Discharge Order (Routine); Ordered 06/06/23 Ordered By: Kendal Byrnes DS: Diagnosis Discharge Diagnosis (1) Positive colorectal cancer screening using Cologuard test: Status: Acute Asessment and Plan: The patient is seen and examined after their colonoscopy.? The patient has been able to pass gas.? They are not having abdominal pain.? They have been able to tolerate liquids and a snack.? They do not have any nausea or vomiting.? They are not having any chest pain or shortness of breath.??? They are not having any rectal bleeding. Their vital signs have been stable-see nursing notes. We discussed findings during their colonoscopy, and any biopsies that were done/polyps that were removed. The patient will be sent a letter with any biopsy results, and when to repeat the colonoscopy.-see discharge instructions. Patient was given explicit instructions to follow-up regarding colonoscopy-refer to discharge instructions.? We reviewed resumption of medications. Patient verbalized understanding and discharged in stable and satisfactory condition- See nursing notes. (2) Alcohol consumption of one to four drinks per day on alcohol screening: Status: Chronic (3) Encounter for annual physical exam: Status: Acute (4) Fatigue: Status: Acute (5) Weight loss: Status: Acute (6) Myocardial infarct, old: Status: Acute (7) Elevated liver function tests: Status: Acute
[2023-06-06] VITALS (7 sets, daily range): BP systolic 98–127; BP diastolic 69–89; PULSE 82–104; RESP 16–20; TEMP 36.3–36.7; O2SAT 100; BMI 20.7
--- NOTE | 2023-06-06 06:33 | ANES.PREOP_ITS ---
General Info Date of Service Date Performed: 06/06/23 Height: 5 ft 11 in Weight: 67.4 kg Body Mass Index (BMI): 20.7 Surgical Procedure: Operation Date: 06/06/23 07:35 Proposed Procedure Side Surgeon p Colonoscopy/Gastroscopy Kendal Byrnes, DO Meds Allergies and Home Medications Allergies Allergy/AdvReac Type Severity Reaction Status Date / Time aspirin Allergy Severe Hives Verified 06/06/23 06:18 clindamycin Allergy Intermediate Rash, Verified 06/06/23 06:18 redness doxycycline Allergy Intermediate Rash, Verified 06/06/23 06:18 redness doxycycline hyclate Allergy Intermediate Rash, Verified 06/06/23 06:18 [From Doryx] redness sulfacetamide Allergy Intermediate Rash, Verified 06/06/23 06:18 redness Home Medication Medication Instructions Recorded allopurinol 100 mg tablet 100 mg PO DAILY #90 tab-caps 09/05/22 loratadine 10 mg tablet (Allergy See Rx Instructions .Route 01/22/23 Relief (loratadine)) .COMPLEX #90 tabs lisinopril 10 mg tablet 10 mg PO DAILY #90 tab-caps 02/12/23 montelukast 10 mg tablet 10 mg PO DAILY 06/05/23 Current Visit Medications: Current Medications Generic Name Dose Route Start Last Admin Trade Name Freq PRN Reason Stop Dose Admin Hyoscyamine Sulfate 0.125 mg 06/06/23 08:03 Hyoscyamine 0.125 Mg Sl/Oral/Chew SL 07/06/23 08:02 DIRECTED PRN Ringer's Solution 1,000 mls @ 80 mls/hr 06/06/23 06:00 IV 07/05/23 23:59 [facility] IV Miscellaneous Supplies 1 each 06/06/23 06:00 Iv Access IV 07/05/23 23:59 DIRECTED SIENNA Ondansetron HCl 4 mg 06/06/23 20:03 Ondansetron 4 Mg/2 Ml Vial IVP 07/06/23 20:02 Q4H PRN PRN Nausea / Vomiting Sodium Chloride 0 ml 06/06/23 06:00 Normal Saline Flush 10 Ml Syr IV 07/05/23 23:59 PRN PRN Sodium Chloride 0 ml 06/06/23 06:00 Normal Saline 10 Ml Vial IJ 07/05/23 23:59 DIRECTED PRN Sterile Water 0 ml 06/06/23 06:00 Water,Injection,Sterile 10 Ml Vial IJ 07/05/23 23:59 DIRECTED PRN PFSH Active Problems Active Problems: Problem Status Onset Code Positive colorectal cancer screening using Cologuard test R19.5 Essential hypertension 02/07/17 I10 Chronic gout of left foot 11/28/17 M1A.0720 Alcohol consumption of one to four drinks per day on alcohol screening Z13.39 Encounter for annual physical exam Z00.00 Hyperlipidemia E78.5 Skin mole D22.9 Insomnia disorder G47.00 Hyponatremia E87.1 Fatigue R53.83 Weight loss R63.4 Myocardial infarct, old I25.2 Tachycardia R00.0 Elevated liver function tests R79.89 Medical History Medical History Gout Infected tooth URI, acute Surgical History Surgical History Repair of inguinal hernia Repair of umbilical hernia Tobacco Smoking/Tobacco Use Status: Former Tobacco Use Smokeless tobacco user: snuff Passive smoking exposure: Yes Second hand exposure: No Alcohol Alcohol Intake: current Alcohol intake frequency: 3 or more drinks per day Alcohol type: beer Substance Use Substance use: Never Substance use type: does not use Counseling provided: none Vital Signs and Lab Results Vital Signs Most Recent Vital Signs in EMR: Most Recent Vital Signs Temp Pulse Resp BP Pulse Ox 36.7 C 104 H 16 119/88 100 06/06/23 06:20 06/06/23 06:20 06/06/23 06:20 06/06/23 06:20 06/06/23 06:20 Lab Results Blood Type / Crossmatch: No Data to Display Complete Blood Count: No Data to Display Complete Metabolic Panel: No Data to Display Liver Function Panel: No Data to Display Coagulation Panel: No Data to Display Cardiac Panel: No Data to Display Arterial Blood Gas: No Data to Display Venous Blood Gas: No Data to Display Pancreas Panel: No Data to Display Thyroid Panel: No Data to Display Infectious Disease: No Data to Display Blood Cultures: No Data to Display Toxicology Panel: No Data to Display Imaging and Studies Imaging and Studies Study information below may be from another EMR and interpreted by another provider. Please see original notes in EMR for more complete details. EKG Summary: EKG PATIENT NAME: Gracy Fall #: [id number] ORDERING PROVIDER: Kaushik Thibodeaux NPACCOUNT #: [id number] PRIMARY CARE PROVIDER:Kaushik Pierce DNP DATE/TIME OF SERVICE: 04/16/23840 : 1960ERFORMING LOCATION: . APPROVED REPORT Exam: Resting ECG Reason for Exam: fatigue Patient Location: O HR:96 bpm ECG Measurements Heart Rate 96 AXIS MT 162 P 78 QRSd 95 QRS -78 QT 361 T57 QTc 457 Conclusion Sinus rhythm...normal P axis, V-rate 50- 99 Left anterior fascicular block Low voltage <Electronically signed by ROBERT VYAS MD in OV> E-Sign Date: 04/16/23 E-Sign Time: 0949 Echocardiogram Summary: atient Name: Gracy Fall #: [id number]: Ordering Provider: Kaushik Thibodeaux NPAccount #: [id number]: REG CLI Primary Care Provider: Kaushik Thibodeaux NPDate of Exam: 05/29/23Sex: M Admission Date: 05/29/23 : 1960 Age: 62 APPROVED REPORT EXAM: Comprehensive 2D, Doppler, and color-flow Echocardiogram Patient Location: Out-Patient Physics Professor: Eric Frost RDMS, RVT Indications: increasing fatigue, essential HTN, old myocardial infarct Other Information Study Quality: Fair. Technically limited study due to body habitus. Conclusion Normal left ventricular wall thickness and chamber size. Ejection fraction is 60 to 65%. The wall motion is hyperdynamic Normal right ventricular size and systolic function Both atria are normal in size There is no structural or hemodynamically significant valvular disease Estimated right ventricular systolic pressure is 22 mmHg Wall motion Left Ventricle Technically limited parasternal imaging. The left ventricle visually appears grossly normal in size. The left ventricular systolic function is normal. The left ventricular ejection fraction is within the normal range. Ventricle is hyperdynamic There is no ventricular septal defect visualized. LVEF is 60-65%. Right Ventricle The right ventricle is normal size. The RVSP is 22.2mmHg. Atria The left atrium size is normal. The right atrium size is normal. The interatrial septum is intact with no evidence for an atrial septal defect. Aortic Valve Aortic valve is trileaflet. There is no aortic valvular stenosis. No aortic regurgitation is present. Mitral Valve The mitral valve is normal in structure. No evidence of mitral valve stenosis. There is no mitral valve regurgitation noted. Tricuspid Valve The tricuspid valve is normal in structure. There is no tricuspid valve stenosis. Mild tricuspid regurgitation. Pulmonic Valve The pulmonary valve is normal in structure. There is no pulmonic valvular stenosis. There is no pulmonic valvular regurgitation. Great Vessels The aortic root is normal in size. Ascending aorta is not well visualized. Aortic arch is not well visualized. IVC is normal in size and collapses >50% with inspiration. Pericardium There is no pericardial effusion. 2D Dimensions Ao Root d 4.05 cm M: 3.1 - 3.7LV Vol A2C d MOD 57.5 mL LVEF (Vann's)60.43 % M: 52 - 72LV Vol A4C d MOD 56.3 mL LV Jxtqbd00.31 mL M: 62 - 150LV EF A4C MOD 59.0 % LV Volume Index22.55 mL/m2 M: 34 - 74LV EF A2C MOD 61.9 % LV Vol Biplane MOD 56.9 mLLV EF Biplane MOD 60.4 % SV34.40 mL SV Index17.94 mL/m2 M-Mode TAPSE 2.10 cm (M/F) >1.7 LV Diastology MV E' medial0.135 (>0.07 m/s)E/A Ratio 0.7 LV E/e MED4.10 (<14)MV E Vmax 0.56 (0.4-1.3 m/s) MV E' lateral0.090 (>0.1 m/s)MV A Vmax 0.80 (0.4-1.3 m/s) LV E/e LAT6.20 (<14)MV E/A Ratio 0.70 MV E/E' medial 4.12 MV E/E' lateral6.22 Aortic Valve LVOT Area3.91 cm2AoV Area Vmax3.75 cm2 LVOT Vmax 0.95 m/sAoV Area/ BSA (Vmax)1.95 cm2/m2 LVOT Mean Leland.0.60 m/sAVA Mean Lleand.3.30 cm2 LVOT Peak Grad 3.6 mmHgAVA Mean Leland. Index1.72 cm2/m2 LVOT Mean Grad 1.7 mmHg LVOT VTI0.171 m LVOT Diam s 2.20 cm AoV Vmax0.99 m/s Velocity Ratio 0.96 AoV Mean Leland.0.71 m/s AoV Peak Grad4.0 mmHg LVOT SV 67.01 mL AoV Mean Grad2.2 mmHg AoV VTI0.152 m AoV Area VTI4.39 cm2 AoV Area/ BSA (VTI)2.29 cm/m2 Mitral Valve MV DT 137 (160-240 msec) MV PHT40 msec MV Area PHT 5.55 cm2 MV VTI 0.216 m MV Area VTI 3.10 (4.0-6.0 cm2) Tricuspid Valve TR Peak Grad 19.1 mmHgTR Vmax 2.19 m/s RA Pressure 3.00 mmHg RVSP (TR) 22.2 mmHg Ordered By: Kaushik Thibodeaux NP CC: Dictated By: Robert Vyas M.D. 05/29/23 1612 <Electronically signed by Robert Vyas M.D. in [place]> 05/30/23 3626 Transcribed By: Robert Vyas MD Anesthesia Assessment and Plan Anesthesia History Personal History: No History of Anesthesia Complications Family History: No Family History of Anesthesia Complications Exercise Tolerance Exercise Tolerance: Metabolic Equivalents>4 Pertinent Negatives Pertinent Negatives: No Symptoms of GERD, No Major Cardiovascular Symptoms or Complaints, No Major Pulmonary Symptoms or Complaints and No History of CVA/TIA Cardiac & Pulmonary Exam Cardiac Exam: Normal S1/S2 Heart Sounds Pulmonary Exam: Clear Bilateral Breath Sounds Implantable Cardiac Device Does patient have a Pacemaker or an ICD?: No Airway Exam Known Difficult Airway: No Mallampati Class: 3 Mouth Opening: Narrow (< 3cm) (very limited TMJ in the past) Thyromental Distance: Greater than 3 cm Neck Range of Motion: Full ROM Neck Circumference: Normal Teeth Condition: Generalized Poor Dentition and Loose or Chipped (Chipped front teeth: did discuss previous damage to front teeth with small mouth opening and bite block has increased risk of damage to his teeth. ) ASA Classification ASA Score: ASA 2 Emergency Case?: No NPO Status NPO Status: NPO Clears >2 hours, Solids >8 hours Anesthesia Plan Resuscitation Status: Full Code Anesthesia Technique: General Anesthesia Airway Planned: Natural Airway Monitors Used: Standard Monitors
[2023-06-06] MEDS: Lactated Ringers 1,000 ML 80 ML IV (07:25)
[2023-06-06 07:33] LABS: Abs Immature Grans 0.02 10^3/uL (0.0-0.06); Absolute Basophil Count 0.03 10^3/uL (0.0-0.2); Absolute Eosinophil Count 0.03 10^3/uL (0.0-0.7); Absolute Monocyte Count 0.69 10^3/uL (0.1-0.8); Absolute Neutrophil Count 3.72 10^3/uL (1.2-6.7); Basophils % 0.6; Eosinophils % 0.6; HCT 34.4 % (40.0-50.0); HGB 12.6 g/dL (13.5-17.5); Immature Grans % 0.4; Lymphocytes % 11.8; MCHC 36.6 % (32.0-36.0); MCV 96 fL (80-95); MPV 8.4 fL (8.0-11.0); Monocytes % 13.6; Platelet Count 148 10^3/uL (130-400); RDW 14.8 % (11.8-14.1); RDW-SD 51.4 fL; WBC 5.09 10^3/uL (4.4-10.8)
--- NOTE | 2023-06-06 07:50 | STOM_PTH ---
PATIENT: Ben Fall LOC: [facility] U#:[id number] AGE/SX: 62/M ROOM: RE06/06/[address]: Kendal Byrnes : 1960 BED: DIS: 06/06/2023 SPEC #: [id number] RECD: 06/06/23 15:33 STATUS: RENE REMikhail #: [id number] PANDA: 06/06/23 07:[address]: Kendal Byrnes DEPT: Surgical Specimen RECD BY: Sepideh Cheney ENTERED: 06/06/23 15:34 SP TYPE: STOMACH OTHR DR: Kaushik Pierce, JOO Tissues: 1 - BIOPSY BOWEL 2 - BIOPSY BOWEL 3 - STOMACH BIOPSY 4 - STOMACH BIOPSY 5 - ESOPHAGUS BIOPSY 6 - ESOPHAGUS BIOPSY 7 - BIOPSY BOWEL Procedures: GROSS AND MICRO LEVEL 4 Comments: [id number]
[2023-06-06 08:10] LABS: Vitamin D 25 Total 61.3 ng/mL (30-100)
[2023-06-06 08:16] LABS: Iron 161 ug/dL (65-175); Total Iron Binding Capacity 142 ug/dL (250-450); Transferrin Sat 113 % (20-55)
[2023-06-06 08:23] LABS: ALT 102 U/L (16-63); Albumin 3.1 g/dL (3.4-5.0); Alkaline Phosphatase 227 U/L (46-116); Anion Gap 11.7 mmol/L (3-11); BUN 6 mg/dL (7-18); Bilirubin, Total 1.9 mg/dL (0.2-1.0); CO2 21.3 mmol/L (21.0-32.0); CREATININE 1.1 mg/dL (0.70-1.30); Chloride 94 mmol/L (98-107); Estimated GFR 76.37 (mL/min/1.73m2); Glucose 157 mg/dL (74-106); Potassium 3.6 mmol/L (3.5-5.1); Sodium 127 mmol/L (136-145); Total Protein 7.6 g/dL (6.4-8.2); Vitamin B12 865 pg/mL (193-986)
--- NOTE | 2023-06-06 08:31 | W.PM.ENDDOP ---
Date of service: 06/06/23 Time of Service: 08:31 Endoscopy Report DATE OF PROCEDURE: 06/06/23 PRE-OP DIAGNOSIS: Loss of appetite and early satiety POST-OP DIAGNOSIS: same SURGEON: Kendal Byrnes ANESTHESIA TYPE: General:No Airway ESTIMATED BLOOD LOSS: 1 PATHOLOGY: other COMPLICATIONS: None DISPOSITION: PACU PROCEDURE DESCRIPTION: Were exchanged and we proceeded to review colonoscopy. Normal after informed consent was obtained the patient was take to the procedure room and placed in a supine position. Monitors were applied and a time out was done. The patients name, date of , procedure type, allergies to medications and metal in their body was reviewed. A bite block was placed and the patient was sedated. Once sedated and comfortable the gastroscope was advanced through the oropharynx which was grossly normal into the esophagus. The proximal and mid-esophagus were . In the distal esophagus there was no esophageal varices/diverticula/stricture apparent. He has some mild esophagitis. The scope was advanced into the stomach and through the pylorus into the 3rd portion of the duodenum. The duodenum was noted to be normal. Biopsies were done, all specimen is retrieved and no bleeding is noted. . The scope was retracted back into the stomach and biopsies were done to rule out H. pylori. There were no ulcers, there is some mild diffuse gastritis at the antrum. Biopsies were taken the scope was retroflexed. The cardia and fundus were noted to be normal. There no hiatal hernia noted. The scope was retracted back into the esophagus and biopsies were done of the GE junction to rule out Scott's. The Z line was irregular. The GE junction was at 40 cm. The scope was then withdrawn and we proceeded to the colonoscopy.
[2023-06-06 08:37] LABS: Ferritin > 2000 ng/mL (26-388)
[2023-06-06 08:48] LABS: AST 145 U/L (15-37)
--- NOTE | 2023-06-06 09:08 | W.ANESPOSTOP ---
Postoperative Evaluation Date, Time and Location Date Performed: 06/06/23 Time Performed: 09:08 Patient Location: Day Surgery Unit Vital Signs Most Recent Imported Vital Signs: Most Recent Vital Signs Temp Pulse Resp BP Pulse Ox 36.3 C L 82 18 121/80 100 06/06/23 08:45 06/06/23 08:45 06/06/23 08:45 06/06/23 08:45 06/06/23 08:45 Pain Score Most Recent Pain Score: Most Recent Pain Score Pain Level 0 06/06/23 08:45 Assessment Mental Status: Awake (Alert & Oriented to Patient Baseline) Airway and Respiratory Function: Patent airway with normal (patient baseline) respiratory exam Cardiovascular Function: Hemodynamically Stable Hydration Status: Adequately Hydrated Nausea & Vomiting: No Nausea or Vomiting Pain: Pt. Denies Any Pain Peripheral Nerve Block: Patient did not receive a nerve block
[2023-06-07 09:52] LABS: IgA 618 mg/dL (85-499); IgG 1584 mg/dL (610-1616)
[2023-06-10 12:33] LABS: Tissue Transglutaminase IgA 2.8 U/mL (<4.0)
== END 2023-06-06 09:35 | disposition home or self-care (01) ==
PROVIDERS: Nurse Practitioner Family; PCP Nurse Practitioner Family; Visit Provider Surgery
PROC: (CPT 45378; principal; 2023-06-06 07:30)
DX: Z12.11 Encounter for screening for malignant neoplasm of colon (principal); R19.5 Other fecal abnormalities; R68.81 Early satiety; R63.0 Anorexia; K20.90 Esophagitis, unspecified without bleeding; Z79.899 Other long term (current) drug therapy; I10 Essential (primary) hypertension; R79.89 Other specified abnormal findings of blood chemistry; K22.89 Other specified disease of esophagus
CPT/HCPCS: 45378; 43239; 36415; 80053; 82306; 82784; 88305; 82607; 82728; 83540; 83550; 85025; J2001; J2250

== ENCOUNTER 2023-06-14 10:43 | Outpatient (REF) | payer BC, SELFPAY ==
[2023-06-14 10:07] LABS: Sodium, Urine 108 mmol/L
[2023-06-14 18:23] LABS: Osmolality, Urine 410 mOsm/kg (150-1150)
== END 2023-06-14 10:44 | disposition home or self-care (01) ==
LOC: LBN 10:43
PROVIDERS: PCP Nurse Practitioner Family; Visit Provider Nurse Practitioner Family
DX: E87.1 Hypo-osmolality and hyponatremia (principal)
CPT/HCPCS: 83935; 84300

== ENCOUNTER 2023-07-16 18:47 | Emergency (ER) | payer BC, SELFPAY ==
[2023-07-16 18:48] VITALS: BP 127/81; PULSE 99; RESP 15; TEMP 37.1; O2SAT 99
--- NOTE | 2023-07-16 19:48 | W.ED.GENAD ---
Discharge Plan Disposition Patient Disposition: Home Condition: Stable Discharge Details Clinical Impression: Avulsion of finger tip Primary Care Provider: Kaushik Thibodeaux ED Provider: Milka Whaley Home Meds and New Rx's Prescriptions: No Action allopurinol 100 mg tablet 100 mg PO DAILY Qty: 90 4RF loratadine [Allergy Relief (loratadine)] 10 mg tablet See Rx Instructions .ROUTE .COMPLEX Qty: 90 4RF Dose Instruction: TAKE 1 TABLET BY MOUTH DAILY Rx Instructions: TAKE 1 TABLET BY MOUTH DAILY lisinopril 10 mg tablet 10 mg PO DAILY Qty: 90 3RF montelukast 10 mg tablet 10 mg PO DAILY PRN pantoprazole [Protonix] 40 mg tablet,delayed release (DR/EC) 40 mg PO DAILY Qty: 30 12RF Discharge Instructions Instructions: Finger Laceration (ED) Additional Instructions: Keep dressing on until tomorrow. When you remove the dressing wash under running soap and water. If recurrent bleeding you may apply the liquid adhesive and apply direct pressure for approximately 15 minutes. Return for any worsening bleeding dizziness lightheadedness or any concerns. Your tetanus vaccine is up-to-date. Keep elevated you may apply ice if needed. Thank you for allowing us to care for you today and thank you for your patience. Referrals: Kaushik Thibodeaux, LEAD NEURODIAGNO[employer]IC TECHNOLOGIST [Primary Care Provider] - 5 days Medical Decision Making 62-year-old male presents to the ER with chief complaint of right index finger laceration which occurred approximately an hour prior to arrival while cutting some potatoes on a mandolin. He has an avulsion noted to the distal tip of his right index finger. Bleeding has been uncontrolled. He is up-to-date on his tetanus vaccination had it in 2019. Does have a history of gout,, hyperlipidemia, [place]. Distal fingertip wound care performed with silver nitrate for cauterization and control of bleeding. Patient tolerated well. Xeroform nonadherent dressing applied and pressure bandage. Full range of motion, imaging not indicated at this time. Patient and family given some Dermabond to go instructed for direct pressure and home care if recurrent bleeding returns. Patient and family verbalized understanding. Patient remained hemodynamically stable throughout remainder of stay and ambulatory upon discharge. HPI General Mode of arrival: ambulatory. Date/Time Provider Initiated Documentation: 07/16/23 18:56. Limitations to Documentation: no limitations. Information obtained by: patient, RN notes reviewed and old records reviewed. HPI Narrative: 62-year-old male presents to the ER with chief complaint of right index finger laceration which occurred approximately an hour prior to arrival while cutting some potatoes on a mandolin. He has an avulsion noted to the distal tip of his right index finger. Bleeding has been uncontrolled. He is up-to-date on his tetanus vaccination had it in 2019. Does have a history of gout,, hyperlipidemia, [place]. Related Data Home Medications Medication Instructions Recorded Confirmed allopurinol 100 mg tablet 100 mg PO DAILY #90 tab-caps 09/05/22 07/16/23 loratadine 10 mg tablet (Allergy See Rx Instructions .Route 01/22/23 07/16/23 Relief (loratadine)) .COMPLEX #90 tabs lisinopril 10 mg tablet 10 mg PO DAILY #90 tab-caps 02/12/23 07/16/23 montelukast 10 mg tablet 10 mg PO DAILY PRN 06/05/23 07/16/23 pantoprazole 40 mg tablet,delayed 40 mg PO DAILY #30 tabs 06/06/23 07/16/23 release (Protonix) Previous Rx's Medication Instructions Recorded allopurinol 100 mg tablet 100 mg PO DAILY #90 tab-caps 09/05/22 loratadine 10 mg tablet (Allergy See Rx Instructions .Route 01/22/23 Relief (loratadine)) .COMPLEX #90 tabs lisinopril 10 mg tablet 10 mg PO DAILY #90 tab-caps 02/12/23 pantoprazole 40 mg tablet,delayed 40 mg PO DAILY #30 tabs 06/06/23 release (Protonix) Allergies Allergy/AdvReac Type Severity Reaction Status Date / Time aspirin Allergy Severe Hives Verified 07/16/23 18:54 clindamycin Allergy Intermediate Rash, Verified 07/16/23 18:54 redness doxycycline Allergy Intermediate Rash, Verified 07/16/23 18:54 redness doxycycline hyclate Allergy Intermediate Rash, Verified 07/16/23 18:54 [From Doryx] redness sulfacetamide Allergy Intermediate Rash, Verified 07/16/23 18:54 redness General Stated Complaint: Laceration EVA: 4 Review of Systems All systems reviewed & are unremarkable except as noted in HPI and below Integumentary/Breasts Skin/Breast: Reports as per HPI (Laceration right distal index finger) PFS All Active Problems (Updated 07/16/23 @ 20:14 by Milka Whaley NP) Essential hypertension (Chronic 02/07/17) Chronic gout of left foot (Chronic 11/28/17) Alcohol consumption of one to four drinks per day on alcohol screening (Chronic) Encounter for annual physical exam (Acute) Hyperlipidemia (Acute) Skin mole (Acute) Insomnia disorder (Acute) Hyponatremia (Acute) Fatigue (Acute) Weight loss (Acute) Myocardial infarct, old (Acute) Tachycardia (Acute) Elevated liver function tests (Acute) Positive colorectal cancer screening using Cologuard test (Acute) Long COVID (Acute) Avulsion of finger tip (Acute) Medical History Gout Infected tooth URI, acute Surgical History History of colonoscopy (~05/2023) History of esophagogastroduodenoscopy Repair of inguinal hernia Repair of umbilical hernia Family History Mother , 53 Throat cancer Father , 87 COPD (chronic obstructive pulmonary disease) Heart disease Sister No problems noted. Sister Breast cancer Sister Breast cancer Maternal Grandfather No problems noted. Paternal Grandfather No problems noted. Maternal Grandmother No problems noted. Paternal Grandmother No problems noted. Son No problems noted. Daughter No problems noted. Social History Smoking/Tobacco Use Status: Former Tobacco Use tobacco type: cigarettes and smokeless tobacco Quit Date: 11/11/85 Tobacco: How many years used: 10 Smokeless tobacco user: snuff Second Hand Exposure: No Smoking risk assessment performed?: Yes Alcohol Intake: current Alcohol Intake frequency: 3 or more drinks per day Alcohol type: beer Drug use: Never Substance use type: does not use Counseling given: No Counseling provided: none Caregiver/Support person: No Household members: significant other and children Housing: house Do you need help understanding health information?: Never Pets and animals: Yes Pets and animals: dog(s) and horse(s) Sexually active: Yes Do you think of yourself as: straight/heterosexual Current gender identity: male What is your relationship status?: living with partner How often do you talk on the phone with friends or family?: once per week How often do you get together with friends or relatives?: once per week How often do you attend jain or christianity services?: decline to answer Do you belong to any clubs or organized social groups?: no Panel score (0-1 are the most socially isolated patients): 1 What type of physical activity do you participate in: decline to answer Duration: decline to answer Frequency: decline to answer Sylvie/Cheondoism: Orthodox Special sylvie needs: No Seatbelt use: always Helmet use: Yes Helmet use: always 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 Avulsion noted involves subcutaneous tissue, bleeding noted, controlled with pressure and cauterization. Course Vital Signs Vital signs: Vital Signs Temperature 37.1 C 07/16/23 18:48 Pulse 99 H 07/16/23 18:48 Respiratory Rate 15 07/16/23 18:48 Blood Pressure 127/81 07/16/23 18:48 Pulse Oximetry 99 07/16/23 18:48 Temperature 37.1 C 07/16/23 18:48 Temperature Source Temporal Artery Scan 07/16/23 18:48 Pulse 99 H 07/16/23 18:48 Respiratory Rate 15 07/16/23 18:48 Respiratory Effort Normal 07/16/23 18:52 Blood Pressure 127/81 07/16/23 18:48 Blood Pressure Position Sitting 07/16/23 18:48 Pulse Oximetry 99 07/16/23 18:48 Oxygen Delivery Method Room Air 07/16/23 18:48 Oxygen Flow Rate 0 07/16/23 18:48 Pain Level 0 07/16/23 18:48 Procedures Other Description: Silver nitrate applied to distal tip of index finger. Bleeding controlled, Xeroform dressing applied and pressure dressing. PAWSS Have you Been Recently Intoxicated or Drunk Within the Last 30 days?: No Have you Ever Experienced Previous Episodes of Alcohol Withdrawal?: No Have you ever Experienced Withdrawal Seizures?: No Have you ever Experienced Delirium Tremens(DT)s?: No Have you ever undergone Alcohol Rehabilitation Treatment (i.e, inpt ot outpatient treatment programs)?: No Have you ever Experienced Blackouts?: No Have you ever Combined Alcohol with other Downers within the last 90 days?: No Have you ever Combined Alcohol with any other Substance of Abuse during the last 90 days?: No Result: 0
[2023-07-16] MEDS: Silver Nitrate Stick 1 EACH TP (20:38)
== END 2023-07-16 20:31 | disposition home or self-care (01) ==
PROVIDERS: Emergency Provider Registered Nurse Emergency; PCP Nurse Practitioner Family
DX: S61.201A Unspecified open wound of left index finger without damage to nail, initial encounter (principal); X58.XXXA Exposure to other specified factors, initial encounter
CPT/HCPCS: 99283

== ENCOUNTER 2023-09-13 02:36 | Outpatient (CLI) | payer BC, SELFPAY ==
[2023-09-13 10:49] LABS: Abs Immature Grans 0.02 10^3/uL (0.0-0.06); Absolute Basophil Count 0.04 10^3/uL (0.0-0.2); Absolute Eosinophil Count 0.02 10^3/uL (0.0-0.7); Absolute Lymphocyte Count 0.62 10^3/uL (1.2-3.4); Absolute Monocyte Count 0.62 10^3/uL (0.1-0.8); Absolute Neutrophil Count 4.86 10^3/uL (1.2-6.7); Basophils % 0.6; Eosinophils % 0.3; HGB 13.6 g/dL (13.5-17.5); Immature Grans % 0.3; MCH 32.6 pg (27.0-33.0); MCHC 35.8 % (32.0-36.0); MCV 91 fL (80-95); MPV 8.9 fL (8.0-11.0); Neutrophils % 78.8; Platelet Count 110 10^3/uL (130-400); RBC 4.17 10^6/uL (4.36-5.78); RDW 12.2 % (11.8-14.1); RDW-SD 40.7 fL; WBC 6.18 10^3/uL (4.4-10.8)
[2023-09-13 10:50] LABS: Prothrombin Time 10.2 sec (9.1-11.1)
[2023-09-13 11:33] LABS: Iron 157 ug/dL (65-175); Total Iron Binding Capacity 375 ug/dL (250-450); Transferrin Sat 42 % (20-55)
[2023-09-13 11:41] LABS: ALT 72 U/L (16-63); AST 92 U/L (15-37); Albumin 3.9 g/dL (3.4-5.0); Alkaline Phosphatase 78 U/L (46-116); Anion Gap 11.8 mmol/L (3-11); BUN 8 mg/dL (7-18); Bilirubin, Total 0.6 mg/dL (0.2-1.0); CO2 25.2 mmol/L (21.0-32.0); Calcium 9.5 mg/dL (8.5-10.1); Chloride 87 mmol/L (98-107); Ferritin 273 ng/mL (26-388); Glucose 177 mg/dL (74-106); Potassium 4.2 mmol/L (3.5-5.1); Total Protein 8.6 g/dL (6.4-8.2)
[2023-09-13 11:51] LABS: Sodium 124 mmol/L (136-145)
[2023-09-16 10:05] LABS: IgG 1440 mg/dL (610-1616)
[2023-09-16 10:25] LABS: Alpha 1 Antitrypsin,Serum 151 mg/dL (90-200)
[2023-09-16 10:43] LABS: Hepatitis B Surface Ag Negative (Negative)
[2023-09-16 11:54] LABS: HIV-1/2 Ag & Ab Screen Negative (Negative)
[2023-09-16 12:11] LABS: HBs Antibody, Quant <3.1 mIU/mL (See Note); Hepatitis B Surface Ab Negative (See Note)
[2023-09-16 12:18] LABS: Hep B Core Antibody Negative (Negative)
[2023-09-16 12:22] LABS: Hepatitis C Ab w Rflx HCV PCR Negative (Negative)
[2023-09-16 12:45] LABS: Hep A Total Ab w Rflx IgM Negative (Negative)
[2023-09-16 14:25] LABS: Mitochondrial Ab, M2 <0.1 U
[2023-09-16 14:45] LABS: Albumin 55.4 % (55.8-66.1); Albumin g/dL 4.5 g/dL (3.6-5.2); Comment (See Note); Total Protein 8.2 g/dL (6.3-8.2)
[2023-09-16 14:57] LABS: ANA Interpretation Negative (Negative)
[2023-09-16 16:01] LABS: Smooth Muscle Ab Screen Negative (Negative)
[2023-09-20 13:17] LABS: Immunotyping, Serum See Comments
== END 2023-09-13 02:37 | disposition home or self-care (01) ==
PROVIDERS: PCP Nurse Practitioner Family; Visit Provider Nurse Practitioner Family
DX: R79.89 Other specified abnormal findings of blood chemistry (principal)
CPT/HCPCS: 36415; 80053; 82784; 83516; 86704; 86706; 86709; 86803; 87340; 87389; 82103; 82104; 82728; 83540; 83550; 84165; 85025; 85610; 86038; 86255; 86320

== ENCOUNTER → 2024-04-13 02:07 | Outpatient (CLI) | payer MEDICAID, SELFPAY ==
--- NOTE | 2024-04-13 | DI.US_ITS ---
Exam(s) US ABDOMEN LIMITED EXAM: US ABDOMEN LIMITED CLINICAL HISTORY: Hepatic cirrhosis, K74.60; HCC screening TECHNIQUE: Ultrasound abdomen performed using standard protocol. COMPARISON: CT CT CHEST/ABD/PEL W from 04/19/2023 FINDINGS: PANCREAS: Normal where visualized. LIVER: There is increased echogenicity of the liver consistent with fatty infiltration. Hepatopetal flow in the Portal Vein. The liver measures in 13.2 cm length. No evidence of a hepatic mass. GALLBLADDER:Cholelithiasis. No evidence of wall thickening. No pericholecystic fluid identified. BILIARY SYSTEM: Common bile duct measures < 7 mm. No intrahepatic biliary ductal dilation. BENITEZ'S SIGN: Negative. RIGHT KIDNEY: Kidney is normal in size. No evidence of renal calculi. No evidence of hydronephrosis. No renal mass or cyst identified. ASCITES: None seen. ABDOMINAL AORTA AND IVC: Visualized portions normal caliber. IMPRESSION: 1. No evidence of a hepatic mass. 2. Fatty infiltration of the liver. 3. Cholelithiasis. DATA REPOSITORY:
== END ==
PROVIDERS: PCP Nurse Practitioner Family; Visit Provider Internal Medicine
DX: K74.60 Unspecified cirrhosis of liver (principal)
CPT/HCPCS: 76705

== ENCOUNTER 2024-04-13 04:38 | Outpatient (CLI) | payer MEDICAID, SELFPAY ==
[2024-04-13 07:52] LABS: Abs Immature Grans 0.01 10^3/uL (0.0-0.06); Absolute Basophil Count 0.04 10^3/uL (0.0-0.2); Absolute Eosinophil Count 0.08 10^3/uL (0.0-0.7); Absolute Lymphocyte Count 0.59 10^3/uL (1.2-3.4); Absolute Monocyte Count 0.74 10^3/uL (0.1-0.8); Absolute Neutrophil Count 3.86 10^3/uL (1.2-6.7); Basophils % 0.8 %; Eosinophils % 1.5 %; HCT 44.4 % (40.0-50.0); HGB 15.5 g/dL (13.5-17.5); Immature Grans % 0.2 %; Lymphocytes % 11.1 %; MCH 31.1 pg (27.0-33.0); MCHC 34.9 % (32.0-36.0); MCV 89 fL (80-95); MPV 9.7 fL (8.0-11.0); Monocytes % 13.9 %; Neutrophils % 72.5 %; Platelet Count 100 10^3/uL (130-400); RBC 4.99 10^6/uL (4.36-5.78); RDW-SD 39.4 fL; WBC 5.32 10^3/uL (4.4-10.8)
[2024-04-13 08:00] LABS: Prothrombin Time 10.3 sec (9.1-11.1)
[2024-04-13 08:30] LABS: ALT 132 U/L (16-63); AST 161 U/L (15-37); Albumin 3.9 g/dL (3.4-5.0); Alkaline Phosphatase 74 U/L (46-116); BUN 6 mg/dL (7-18); Bilirubin, Total 0.7 mg/dL (0.2-1.0); Calcium 9.8 mg/dL (8.5-10.1); Chloride 91 mmol/L (98-107); Glucose 107 mg/dL (74-106); Potassium 4.9 mmol/L (3.5-5.1); Sodium 128 mmol/L (136-145); Total Protein 9.6 g/dL (6.4-8.2)
== END 2024-04-13 04:39 | disposition home or self-care (01) ==
LOC: LBO 04:39
PROVIDERS: PCP Nurse Practitioner Family; Visit Provider Internal Medicine
DX: K74.60 Unspecified cirrhosis of liver (principal)
CPT/HCPCS: 36415; 80053; 85025; 85610

== ENCOUNTER 2024-04-18 21:33 | Emergency (ER) | payer MEDICAID, SELFPAY ==
[2024-04-18 21:36] VITALS: BP 156/108; PULSE 95; RESP 16; TEMP 36.1; O2SAT 98
--- NOTE | 2024-04-18 21:45 | ED.GENADUL_ITS ---
Discharge Plan Disposition Patient Disposition: Home Condition: Stable Discharge Details Clinical Impression: Swollen lip, Facial trauma Primary Care Provider: Kaushik Thibodeaux ED Provider: Hilton Upton Home Meds and New Rx's Prescriptions: Continued allopurinol 100 mg tablet See Rx Instructions .ROUTE .COMPLEX Qty: 90 4RF Dose Instruction: TAKE 1 TABLET BY MOUTH DAILY Rx Instructions: TAKE 1 TABLET BY MOUTH DAILY loratadine [Allergy Relief (loratadine)] 10 mg tablet See Rx Instructions .ROUTE .COMPLEX Qty: 90 4RF Dose Instruction: TAKE 1 TABLET BY MOUTH DAILY Rx Instructions: TAKE 1 TABLET BY MOUTH DAILY lisinopril 10 mg tablet 10 mg PO DAILY Qty: 90 3RF pantoprazole [Protonix] 40 mg tablet,delayed release (DR/EC) 40 mg PO DAILY Qty: 30 12RF Discharge Instructions Additional Instructions: Your lip should heal on its own Follow-up with your primary care provider as needed Can use ice as needed to help with the swelling If you feel more ill or have new symptoms such as persistent vomiting return to the emergency department for reevaluation HPI General Mode of arrival: ambulatory . Date/Time Provider Initiated Documentation: 04/18/24 21:34 . Limitations to Documentation: no limitations . Information obtained by: patient . History of Present Illness 63 year old M presents to the emergency department with the chief complaint of Lip swelling, described as mild, Quality is described as aching, Patient started experiencing this hour(s) (1) and it has been constant. No relieving factors improve symptom(s), No exacerbating factors reported . Patient notes no other symptoms.. Patient did receive the following treatments prior to arrival, none Related Data Home Medications Medication Instructions Recorded Confirmed pantoprazole 40 mg tablet,delayed 40 mg PO DAILY #30 tabs 06/06/23 04/18/24 release (Protonix) allopurinol 100 mg tablet See Rx Instructions .Route 12/10/23 04/18/24 .COMPLEX #90 tabs loratadine 10 mg tablet (Allergy See Rx Instructions .Route 01/24/24 04/18/24 Relief (loratadine)) .COMPLEX #90 tabs lisinopril 10 mg tablet 10 mg PO DAILY #90 tab-caps 03/06/24 04/18/24 Previous Rx's Medication Instructions Recorded pantoprazole 40 mg tablet,delayed 40 mg PO DAILY #30 tabs 06/06/23 release (Protonix) allopurinol 100 mg tablet See Rx Instructions .Route 12/10/23 .COMPLEX #90 tabs loratadine 10 mg tablet (Allergy See Rx Instructions .Route 01/24/24 Relief (loratadine)) .COMPLEX #90 tabs lisinopril 10 mg tablet 10 mg PO DAILY #90 tab-caps 03/06/24 Allergies Allergy/AdvReac Type Severity Reaction Status Date / Time aspirin Allergy Severe Hives Verified 04/18/24 21:39 clindamycin Allergy Intermediate Rash, Verified 04/18/24 21:39 redness doxycycline Allergy Intermediate Rash, Verified 04/18/24 21:39 redness doxycycline hyclate Allergy Intermediate Rash, Verified 04/18/24 21:39 [From Doryx] redness sulfacetamide Allergy Intermediate Rash, Verified 04/18/24 21:39 redness General Stated Complaint: Trauma EVA: 3 Review of Systems All systems reviewed & are unremarkable except as noted in HPI and below Constitutional Constitutional: Denies chills, Denies fever(s) and Denies weakness Eyes Eyes: Denies loss of vision Cardiovascular Cardiovascular: Denies chest pain and Denies dyspnea Respiratory Respiratory: Denies cough and Denies dyspnea Gastrointestinal Gastrointestinal: Denies abdominal pain, Denies nausea and Denies vomiting Musculoskeletal Musculoskeletal: Denies joint swelling Neurologic Neurologic: Denies loss of vision and Denies weakness Exam Const General: no acute distress Orientation: alert [facility] Head: normal to inspection Ears: external ears normal General nose exam: external nose normal Mouth: moist mucous membranes Eyes General: appearance normal, both eyes and all related structures Neck Neck: normal visual inspection Resp Effort & Inspection: normal respiratory effort and able to speak in complete sentences Cardio Rate: regular rate Skin General skin exam: no rashes or lesions noted Neuro General: patient alert and patient oriented x3 Extrem General: normal to inspection Psych Mental Status: mental status grossly normal Course Vital Signs Vital signs: Vital Signs Temperature 36.1 C L 04/18/24 21:36 Pulse 95 H 04/18/24 21:36 Respiratory Rate 16 04/18/24 21:36 Blood Pressure 156/108 H 04/18/24 21:36 Pulse Oximetry 98 04/18/24 21:36 Temperature 36.1 C L 04/18/24 21:36 Temperature Source Temporal Artery Scan 04/18/24 21:36 Pulse 95 H 04/18/24 21:36 Respiratory Rate 16 04/18/24 21:36 Blood Pressure 156/108 H 04/18/24 21:36 Pulse Oximetry 98 04/18/24 21:36 Oxygen Delivery Method Room Air 04/18/24 21:36 Oxygen Flow Rate 0 04/18/24 21:36 Medical Decision Making 63-year-old male with a history of hypertension comes in with left lower lip swelling. He was walking backwards down stairs carrying a cooler when he tripped and fell hitting his lower lip on a table. Did not have loss of consciousness and has not had any vomiting. He started to have some lower lip swelling shortly after, his got concerned since she has had angioedema from lisinopril so brought him here for evaluation. He is ambulatory with a normal gait on arrival and appears well in no distress. Speaking clearly, he has no signs of trauma to the head other than the left lower lip swelling. Pupils are equal and reactive to light, he has no midline C, T, L-spine tenderness has full range of motion of his neck. No chest or abdomen tenderness. He has a superficial 1 cm abrasion on the inner left lower lip, no loose teeth, normal posterior pharynx, no facial tenderness. Advised the lip swelling is from the trauma no abrasion that he has initiated heal on its own. Advised use ice as needed. Do not feel any imaging indicated. He will follow-up with his primary care provider as needed return precautions given Differential Diagnosis Differential Diagnosis: Lip abrasion, facial trauma Quality:SDOH Health Related Social Needs: No Data to Display PFSH All Active Problems (Updated 04/18/24 @ 21:45 by Hilton Upton MD) Facial trauma (Acute) Swollen lip (Acute) Long COVID (Acute) Positive colorectal cancer screening using Cologuard test (Acute) Elevated liver function tests (Acute) Tachycardia (Acute) Myocardial infarct, old (Acute) Weight loss (Acute) Fatigue (Acute) Hyponatremia (Acute) Insomnia disorder (Acute) Skin mole (Acute) Hyperlipidemia (Acute) Encounter for annual physical exam (Acute) Alcohol consumption of one to four drinks per day on alcohol screening (Chronic) Chronic gout of left foot (Chronic 11/28/17) Essential hypertension (Chronic 02/07/17) Medical History Gout Infected tooth URI, acute Surgical History History of colonoscopy (~05/2023) History of esophagogastroduodenoscopy Repair of inguinal hernia Repair of umbilical hernia Family History Mother , 53 Throat cancer Father , 87 COPD (chronic obstructive pulmonary disease) Heart disease Sister No problems noted. Sister Breast cancer Sister Breast cancer Maternal Grandfather No problems noted. Paternal Grandfather No problems noted. Maternal Grandmother No problems noted. Paternal Grandmother No problems noted. Son No problems noted. Daughter No problems noted. Social History Smoking/Tobacco Use Status: Former Tobacco Use tobacco type: cigarettes and smokeless tobacco Quit Date: 11/11/85 Tobacco: How many years used: 10 Smokeless tobacco user: snuff Quit status: quit date established Second Hand Exposure: No Smoking risk assessment performed?: Yes Alcohol Intake: current Alcohol Intake frequency: 3 or more drinks per day Alcohol type: beer Drug use: Never Substance use type: does not use Counseling given: No Counseling provided: none Caregiver/Support person: No Household members: significant other and children Housing: house Do you need help understanding health information?: Never Pets and animals: Yes Pets and animals: dog(s) and horse(s) Sexually active: Yes Do you think of yourself as: straight/heterosexual Current gender identity: male What is your relationship status?: living with partner How often do you talk on the phone with friends or family?: once per week How often do you get together with friends or relatives?: once per week How often do you attend caodaism or sikh services?: decline to answer Do you belong to any clubs or organized social groups?: no Panel score (0-1 are the most socially isolated patients): 1 What type of physical activity do you participate in: decline to answer Duration: decline to answer Frequency: decline to answer Sylvie/Spiritism: Orthodox Special sylvie needs: No Seatbelt use: always Helmet use: Yes Helmet use: always Drive intox or ride w/intox otr flatbed company truck driver: No Do you feel safe at home: Yes Do you feel safe in your relationship?: Yes
== END 2024-04-18 21:57 | disposition home or self-care (01) ==
LOC: ER 21:56
PROVIDERS: Emergency Provider Emergency Medicine; PCP Nurse Practitioner Family
DX: S00.531A Contusion of lip, initial encounter (principal); I25.2 Old myocardial infarction; I10 Essential (primary) hypertension; E78.5 Hyperlipidemia, unspecified; Z87.891 Personal history of nicotine dependence; W01.190A Fall on same level from slipping, tripping and stumbling with subsequent striking against furniture, initial encounter; Y93.01 Activity, walking, marching and hiking; Y92.018 Other place in single-family (private) house as the place of occurrence of the external cause
CPT/HCPCS: 99283

== ENCOUNTER 2025-05-03 18:32 | Outpatient (REF) | payer MEDICAID, SELFPAY ==
[2025-05-03 18:25] LABS: HCT 34.3 % (40.0-50.0); HGB 11.7 g/dL (13.5-17.5); MCH 29.5 pg (27.0-33.0); MCHC 34.1 % (32.0-36.0); MCV 86 fL (80-95); MPV 10.1 fL (8.0-11.0); RBC 3.97 10^6/uL (4.36-5.78); RDW 13.3 % (11.8-14.1); RDW-SD 41.7 fL; WBC 4.23 10^3/uL (4.4-10.8)
[2025-05-03 18:36] LABS: Iron 34 ug/dL (65-175)
[2025-05-03 18:38] LABS: Platelet Count 75 10^3/uL (130-400)
[2025-05-03 18:51] LABS: ALT 44 U/L (16-63); AST 31 U/L (15-37); Alkaline Phosphatase 57 U/L (46-116); Anion Gap 5.3 mmol/L (3-11); BUN 5 mg/dL (7-18); Bilirubin, Total 0.4 mg/dL (0.2-1.0); CO2 28.7 mmol/L (21.0-32.0); CREATININE 0.9 mg/dL (0.70-1.30); Calcium 8.7 mg/dL (8.5-10.1); Calculated LDL 73 mg/dL (<100); Chloride 89 mmol/L (98-107); Cholesterol 162 mg/dL (<200); Estimated GFR 95.97 (mL/min/1.73m2); Ferritin 31 ng/mL (26-388); Glucose 113 mg/dL (74-106); HDL Cholesterol 78 mg/dL (>or=40); Potassium 4.7 mmol/L (3.5-5.1); Total Protein 7.7 g/dL (6.4-8.2); Triglyceride 57 mg/dL (<150)
[2025-05-03 19:03] LABS: Sodium 123 mmol/L (136-145)
[2025-05-03 20:29] LABS: Uric Acid 3.2 mg/dL (3.5-7.2)
[2025-05-04 11:10] LABS: Lab Add On Test DONE
[2025-05-04 11:57] LABS: Vitamin B12 537 pg/mL (193-986)
== END 2025-05-03 18:33 | disposition home or self-care (01) ==
LOC: LBN 18:32
PROVIDERS: PCP Nurse Practitioner Family; Visit Provider Nurse Practitioner Family
DX: G25.81 Restless legs syndrome (principal); F10.10 Alcohol abuse, uncomplicated; E78.5 Hyperlipidemia, unspecified; M1A.0720 Idiopathic chronic gout, left ankle and foot, without tophus (tophi)
CPT/HCPCS: 80053; 80061; 85027; 82607; 82728; 83540; 84550

== ENCOUNTER 2025-05-24 02:13 | Outpatient (CLI) | payer MEDICAID, SELFPAY ==
--- NOTE | 2025-05-24 07:00 | DI.US_ITS ---
Exam(s) US ABDOMEN LIMITED EXAM: US ABDOMEN LIMITED CLINICAL HISTORY: limited hepatology protocol,HEPATIC CIRRHOSIS,K74.60 TECHNIQUE: Ultrasound abdomen performed using standard protocol. COMPARISON: US US ABDOMEN LIMITED from 04/13/2024 FINDINGS: PANCREAS: Normal where visualized. LIVER: The liver has a lobulated contour. Portions of the liver were not well visualized due to overlying bowel gas. Hepatopetal flow in the Portal Vein. The liver measures in 14 cm length. No evidence of a hepatic mass. The liver has a heterogeneous echotexture. GALLBLADDER:Cholelithiasis. No evidence of wall thickening. No pericholecystic fluid identified. BILIARY SYSTEM: Common bile duct measures < 7 mm. No intrahepatic biliary ductal dilation. BENITEZ'S SIGN: Negative. RIGHT KIDNEY: Kidney is normal in size. No evidence of renal calculi. No evidence of hydronephrosis. No renal mass or cyst identified. ASCITES: None seen. IMPRESSION: 1. The liver has a mildly coarsened echotexture and lobulated contour suggesting hepatic cirrhosis. 2. Cholelithiasis. DATA REPOSITORY:
== END 2025-05-24 02:33 ==
LOC: DI 02:13
PROVIDERS: PCP Nurse Practitioner Family; Visit Provider Nurse Practitioner Family
DX: K74.60 Unspecified cirrhosis of liver (principal)
CPT/HCPCS: 76705

== ENCOUNTER 2025-05-26 10:53 | Outpatient (REF) | payer MEDICAID, SELFPAY ==
[2025-05-26 17:37] LABS: Sodium, Urine 10 mmol/L
[2025-05-26 22:08] LABS: Osmolality, Urine 337 mOsm/kg (150-1150)
== END 2025-05-26 10:54 | disposition home or self-care (01) ==
LOC: LBN 10:53
PROVIDERS: PCP Nurse Practitioner Family; Visit Provider Nurse Practitioner Family
DX: E87.1 Hypo-osmolality and hyponatremia (principal)
CPT/HCPCS: 83935; 84300

== ENCOUNTER 2025-08-05 06:50 | Day surgery (SDC) | payer MEDICAID, SELFPAY ==
[2025-08-05 07:05] VITALS: BP 144/93; PULSE 83; RESP 18; TEMP 36.6; O2SAT 100
[2025-08-05] MEDS: Lactated Ringers 1,000 ML 80 ML IV (07:28)
--- NOTE | 2025-08-05 07:49 | W.ANESPRE ---
General Info Date of Service Date Performed: 08/05/25 Height: 5 ft 9.5 in Weight: 65.1 kg Body Mass Index (BMI): 20.9 Surgical Procedure: Operation Date: 08/05/25 08:35 Proposed Procedure Side Surgeon p Colonoscopy/Gastroscopy Bing Alva MD Meds Allergies and Home Medications Allergies Allergy/AdvReac Type Severity Reaction Status Date / Time aspirin Allergy Severe Hives Verified 08/05/25 06:58 clindamycin Allergy Intermediate Rash, Verified 08/05/25 06:58 redness doxycycline Allergy Intermediate Rash, Verified 08/05/25 06:58 redness doxycycline hyclate (From Allergy Intermediate Rash, Verified 08/05/25 06:58 Doryx) redness sulfacetamide Allergy Intermediate Rash, Verified 08/05/25 06:58 redness Home Medication ?Medication ?Instructions ?Recorded allopurinol 100 mg tablet See Rx Instructions .Route 02/15/25 .COMPLEX #90 tabs lisinopril 10 mg tablet 10 mg PO DAILY #90 tab-caps 02/26/25 loratadine 10 mg tablet (Allergy See Rx Instructions .Route 03/17/25 Relief (loratadine)) .COMPLEX #90 tabs pantoprazole 40 mg tablet,delayed 40 mg PO DAILY #90 tabs 05/03/25 release (Protonix) sildenafil 100 mg tablet (Viagra) 100 mg PO DAILY PRN sexual 05/03/25 activity #30 tabs ferrous sulfate 325 mg (65 mg 325 mg PO DAILY 07/28/25 iron) tablet (FeroSul) bisacodyl 5 mg tablet,delayed 5 mg PO ONCE colonscopy bowel prep 08/03/25 release (Dulcolax (bisacodyl)) #4 tabs polyethylene glycol 3350 17 238 g PO ONCE colonoscopy prep 08/03/25 gram/dose oral powder #238 grams Current Visit Medications: Current Medications Generic Name Dose Route Start Last Admin Trade Name Freq PRN Reason Stop Dose Admin Ringer's Solution 1,000 mls @ 80 mls/hr 08/05/25 06:00 08/05/25 07:28 IV 08/05/25 23:59 80 mls/hr INFUSION SIENNA Administration IV Miscellaneous Supplies 1 each 08/05/25 06:00 Iv Access IV 08/05/25 23:59 DIRECTED SIENNA Sodium Biphosphate/Sodium Phosphate 133 - 266 ml 08/05/25 06:00 Na Phosphate Enema-Adult 133 Ml Btl AK 08/05/25 23:59 PRN PRN Sodium Chloride 0 ml 08/05/25 06:00 Normal Saline Flush 10 Ml Syr IV 08/05/25 23:59 PRN PRN Sodium Chloride 0 ml 08/05/25 06:00 Normal Saline 10 Ml Vial IJ 08/05/25 23:59 DIRECTED PRN Sterile Water 0 ml 08/05/25 06:00 Water,Injection,Sterile 10 Ml Vial IJ 08/05/25 23:59 DIRECTED PRN PFSH Active Problems Active Problems: Problem Status Onset Code Anemia Chronic D64.9 Hepatic cirrhosis Acute K74.60 Restless legs Acute G25.81 Erectile dysfunction Acute N52.9 Alcohol abuse Chronic F10.10 Long COVID Acute U09.9 Tachycardia Acute R00.0 Myocardial infarct, old Acute I25.2 Fatigue Acute R53.83 Hyponatremia Acute E87.1 Insomnia disorder Acute G47.00 Skin mole Acute D22.9 Hyperlipidemia Acute E78.5 Encounter for annual physical exam Acute Z00.00 Chronic gout of left foot Chronic 11/28/17 M1A.0720 Essential hypertension Chronic 02/07/17 I10 Medical History Medical History Positive colorectal cancer screening using Cologuard test Elevated liver function tests Weight loss Infected tooth URI, acute Alcohol consumption of one to four drinks per day on alcohol screening Gout Surgical History Surgical History History of esophagogastroduodenoscopy History of colonoscopy (~05/2023) Repair of umbilical hernia Repair of inguinal hernia Tobacco Smoking/Tobacco Use Status: Former Tobacco Use Passive smoking exposure: No Second hand exposure: No Alcohol Alcohol Intake: current Alcohol intake frequency: 3 or more drinks per day Alcohol type: beer Details: decline to answer Substance Use Substance use: Daily Substance use type: marijuana Counseling provided: none Details: inhaled and edible; variable daily intake. Last use was 08/04/25 Vital Signs and Lab Results Vital Signs Most Recent Vital Signs in EMR: Most Recent Vital Signs Temp Pulse Resp BP Pulse Ox 36.6 C 83 18 144/93 H 100 08/05/25 07:05 08/05/25 07:05 08/05/25 07:05 08/05/25 07:05 08/05/25 07:05 Imaging and Studies Imaging and Studies Study information below may be from another EMR and interpreted by another provider. Please see original notes in EMR for more complete details. EKG Summary: EKG PATIENT NAME: Gracy Fall #: [id number] ORDERING PROVIDER: Kaushik Thibodeaux NPACCOUNT #: [id number] PRIMARY CARE PROVIDER:Kaushik Pierce DNP DATE/TIME OF SERVICE: 04/16/23840 : 1960ERFORMING LOCATION: . APPROVED REPORT Exam: Resting ECG Reason for Exam: fatigue Patient Location: O HR:96 bpm ECG Measurements Heart Rate 96 AXIS AK 162 P 78 QRSd 95 QRS -78 QT 361 T57 QTc 457 Conclusion Sinus rhythm...normal P axis, V-rate 50- 99 Left anterior fascicular block Low voltage <Electronically signed by ROBERT VYAS MD in OV> E-Sign Date: 04/16/23 E-Sign Time: 948 Echocardiogram Summary: atient Name: Gracy Fall #: [id number]: DI Ordering Provider: Kaushik Thibodeaux NPAccount #: [id number]: REG CLI Primary Care Provider: Kaushik Thibodeaux NPDate of Exam: 05/29/23Sex: M Admission Date: 05/29/23 : 1960 Age: 62 APPROVED REPORT EXAM: Comprehensive 2D, Doppler, and color-flow Echocardiogram Patient Location: Out-Patient Principal Bioinformatics Specialist: Eric Frost RDMS, RAN Indications: increasing fatigue, essential HTN, old myocardial infarct Other Information Study Quality: Fair. Technically limited study due to body habitus. Conclusion Normal left ventricular wall thickness and chamber size. Ejection fraction is 60 to 65%. The wall motion is hyperdynamic Normal right ventricular size and systolic function Both atria are normal in size There is no structural or hemodynamically significant valvular disease Estimated right ventricular systolic pressure is 22 mmHg Wall motion Left Ventricle Technically limited parasternal imaging. The left ventricle visually appears grossly normal in size. The left ventricular systolic function is normal. The left ventricular ejection fraction is within the normal range. Ventricle is hyperdynamic There is no ventricular septal defect visualized. LVEF is 60-65%. Right Ventricle The right ventricle is normal size. The RVSP is 22.2mmHg. Atria The left atrium size is normal. The right atrium size is normal. The interatrial septum is intact with no evidence for an atrial septal defect. Aortic Valve Aortic valve is trileaflet. There is no aortic valvular stenosis. No aortic regurgitation is present. Mitral Valve The mitral valve is normal in structure. No evidence of mitral valve stenosis. There is no mitral valve regurgitation noted. Tricuspid Valve The tricuspid valve is normal in structure. There is no tricuspid valve stenosis. Mild tricuspid regurgitation. Pulmonic Valve The pulmonary valve is normal in structure. There is no pulmonic valvular stenosis. There is no pulmonic valvular regurgitation. Great Vessels The aortic root is normal in size. Ascending aorta is not well visualized. Aortic arch is not well visualized. IVC is normal in size and collapses >50% with inspiration. Pericardium There is no pericardial effusion. 2D Dimensions Ao Root d 4.05 cm M: 3.1 - 3.7LV Vol A2C d MOD 57.5 mL LVEF (Vann's)60.43 % M: 52 - 72LV Vol A4C d MOD 56.3 mL LV Cvvgam45.31 mL M: 62 - 150LV EF A4C MOD 59.0 % LV Volume Index22.55 mL/m2 M: 34 - 74LV EF A2C MOD 61.9 % LV Vol Biplane MOD 56.9 mLLV EF Biplane MOD 60.4 % SV34.40 mL SV Index17.94 mL/m2 M-Mode TAPSE 2.10 cm (M/F) >1.7 LV Diastology MV E' medial0.135 (>0.07 m/s)E/A Ratio 0.7 LV E/e MED4.10 (<14)MV E Vmax 0.56 (0.4-1.3 m/s) MV E' lateral0.090 (>0.1 m/s)MV A Vmax 0.80 (0.4-1.3 m/s) LV E/e LAT6.20 (<14)MV E/A Ratio 0.70 MV E/E' medial 4.12 MV E/E' lateral6.22 Aortic Valve LVOT Area3.91 cm2AoV Area Vmax3.75 cm2 LVOT Vmax 0.95 m/sAoV Area/ BSA (Vmax)1.95 cm2/m2 LVOT Mean Leland.0.60 m/sAVA Mean Leland.3.30 cm2 LVOT Peak Grad 3.6 mmHgAVA Mean Leland. Index1.72 cm2/m2 LVOT Mean Grad 1.7 mmHg LVOT VTI0.171 m LVOT Diam s 2.20 cm AoV Vmax0.99 m/s Velocity Ratio 0.96 AoV Mean Leland.0.71 m/s AoV Peak Grad4.0 mmHg LVOT SV 67.01 mL AoV Mean Grad2.2 mmHg AoV VTI0.152 m AoV Area VTI4.39 cm2 AoV Area/ BSA (VTI)2.29 cm/m2 Mitral Valve MV DT 137 (160-240 msec) MV PHT40 msec MV Area PHT 5.55 cm2 MV VTI 0.216 m MV Area VTI 3.10 (4.0-6.0 cm2) Tricuspid Valve TR Peak Grad 19.1 mmHgTR Vmax 2.19 m/s RA Pressure 3.00 mmHg RVSP (TR) 22.2 mmHg Ordered By: Kaushik Thibodeaux NP CC: Dictated By: Robert Vyas M.D. 05/29/23 1612 <Electronically signed by Robert Vyas M.D. in OV> 05/30/23 0981 Transcribed By: Robert Vyas MD Anesthesia Assessment and Plan Anesthesia History Personal History: No History of Anesthesia Complications Family History: No Family History of Anesthesia Complications Exercise Tolerance Exercise Tolerance: Metabolic Equivalents>4 Pertinent Negatives Pertinent Negatives: No Symptoms of GERD and No Major Cardiovascular Symptoms or Complaints Cardiac & Pulmonary Exam Cardiac Exam: Normal S1/S2 Heart Sounds Pulmonary Exam: Clear Bilateral Breath Sounds Implantable Cardiac Device Does patient have a Pacemaker or an ICD?: No Airway Exam Known Difficult Airway: No Mallampati Class: 3 Mouth Opening: Narrow (< 3cm) (very limited TMJ in the past) Thyromental Distance: Greater than 3 cm Neck Range of Motion: Full ROM Neck Circumference: Normal Teeth Condition: Generalized Poor Dentition and Loose or Chipped (Chipped front teeth: did discuss previous damage to front teeth with small mouth opening and bite block has increased risk of damage to his teeth. ) ASA Classification ASA Score: ASA 2 Emergency Case?: No NPO Status NPO Status: NPO Clears >2 hours, Solids >8 hours Anesthesia Plan Resuscitation Status: Full Code Anesthesia Technique: General Anesthesia Airway Planned: Natural Airway Monitors Used: Standard Monitors Preoperative Comments:: Previous anesthetic required ketamine for bite guard placement, same plan today. Tolerated last C/G well.
[2025-08-05 07:51] VITALS: BMI 20.9
--- NOTE | 2025-08-05 08:01 | W.PM.DSUDISC ---
Date of service: 08/05/25 Discharge Plan Disposition Patient Disposition: Home Condition: Stable Discharge Details Attending Provider: Bing Alva Primary Care Provider: Kaushik Thibodeaux Home Meds and New Rx's Prescriptions: Continued sildenafil [Viagra] 100 mg tablet 100 mg PO DAILY PRN (Reason: sexual activity) Qty: 30 0RF Rx Instructions: administer 30 minutes to 4 hours before activity ferrous sulfate [FeroSul] 325 mg (65 mg iron) tablet 325 mg PO DAILY allopurinol 100 mg tablet See Rx Instructions .ROUTE .COMPLEX Qty: 90 4RF Dose Instruction: TAKE 1 TABLET BY MOUTH DAILY Rx Instructions: TAKE 1 TABLET BY MOUTH DAILY lisinopril 10 mg tablet 10 mg PO DAILY Qty: 90 3RF loratadine [Allergy Relief (loratadine)] 10 mg tablet See Rx Instructions .ROUTE .COMPLEX Qty: 90 4RF Dose Instruction: TAKE 1 TABLET BY MOUTH DAILY Rx Instructions: TAKE 1 TABLET BY MOUTH DAILY Changed pantoprazole [Protonix] 40 mg tablet,delayed release (DR/EC) 40 mg PO BID Qty: 90 4RF Discontinued bisacodyl [Dulcolax (bisacodyl)] 5 mg tablet,delayed release (DR/EC) 5 mg PO ONCE Qty: 4 0RF Rx Instructions: take per colonoscopy instructions polyethylene glycol 3350 17 gram/dose powder 238 g PO ONCE Qty: 238 0RF Rx Instructions: take per colonoscopy instructions Discharge Instructions Additional Instructions: EGD shows hiaatl hernia with esophagitis and bleeding. Hiatal hernia causes reflux and rubbing on the esophagus which results in bleeding. There was a suggestion of possible early varices but not seen for certain due to the blood obstructing the view. You should be screened for varices again next year. Increase pantoprazole to twice daily to better control reflux through the hiatal hernia and help heal the esophagus. Colonoscopy shows One polyp in the sigmoid colon that was removed with a cautery snare. Next colonoscopy due in 5 years. No cause for anemia seen in colon. You are no longer a candidate for Cologuard. Stand Alone Forms: Anesthesia Discharge Inst., DSU Post EGD Instructions, Colonoscopy Post Instructions, Kory White (DSU) Activity:: Activity as Tolerated Diet:: As Tolerated Discharge Orders Discharge Orders: Discharge Order (Routine); Ordered 08/05/25 Ordered By: Bing Alva DS: Diagnosis Discharge Diagnosis (1) Hepatic cirrhosis: Status: Acute (2) Positive colorectal cancer screening using Cologuard test: (3) Weight loss: (4) Anemia: Status: Chronic
--- NOTE | 2025-08-05 08:03 | ENDO_ITS ---
Date of service: 08/05/25 Time of Service: 08:26 Endoscopy Report DATE OF PROCEDURE: 08/05/25 PRE-OP DIAGNOSIS: anemia, weight loss, cirrhosis POST-OP DIAGNOSIS: same PROCEDURE: EGD SURGEON: Bing Alva ANESTHESIA TYPE: General:No Airway ESTIMATED BLOOD LOSS: 2 COMPLICATIONS: None DISPOSITION: same day INDICATIONS: Evaluation of upper digestive system for anemia and weight loss source/cause. Screen for varices in cirrhotic patient. PROCEDURE DESCRIPTION: Lubricated endoscope was passed through a bite block into the second portion of the duodenum. The endoscope was withdrawn and the duodenum stomach and esophageal mucosa examined. The duodenum appeared normal. There is no inflammation or ulceration or erosion. The antrum appears normal. The fundus appears normal. The cardia appears normal. The endoscope was retroflexed and there is small hiatal hernia. GE junction is at 37cm from the incisors. There is suggestion of grade 1 varices present. There is inflammatory change with bleeding at the GE junction. Bleeding is minimal, not active. Adherent clot precludes exam for erosion or ulceration. The Z-line is regular and there is no evidence of Scott's esophagus. No mark dence of varices on exam. Remainder of the esophagus appears normal Biopsy for H pylori not performed due to thrombocytopenia. No gastritis. The upper digestive system was desufflated and the endoscope withdrawn. No complications. Assessment and plan: Bleeding esophagitis noted. I recommend increasing to BID pantoprazole for hiatal hernia associated reflux with esophagitis. Suggestion of grade 1 varix noted, adherent clot and blood precludes a coplete exam. He should be screened for varices again next year when esophagitis has resolved and there is no bleeding.
--- NOTE | 2025-08-05 08:07 | W.COLOREPORT ---
Date of service: 08/05/25 Time of Service: 08:45 Colonoscopy Report Pre-op diagnosis general: Anemia, weight loss, positive cologuard Post-op diagnosis procedure note: same Procedure: Colonoscopy with hot snare polypectomy Surgeon: Bing Alva Anesthesia Type: General:No Airway Estimated blood loss (mL): 1 Pathology: other (sigmoid polyp) Complications: None Disposition: same day Prep: Miralax/Dulcolax (excellent) Procedure Description: Informed consent was obtained and the patient was taken to the procedure area. The patient was placed in left lateral decubitus position on the procedure table. Timeout was performed. Anesthesia was induced. A lubricated colonoscope was inserted through the anus and passed to the cecum. The cecum was identified by the ileocecal valve and the appendiceal orifice. The scope was then slowly withdrawn and the colonic and rectal mucosa examined. TI intubated and examined. It appears normal. Sigmoid polyp 6mm peducunculated, excised with hot snare and retrieved with polyp trap. No significant diverticulosis was seen. The scope was retroflexed in the anorectal junction examined. Uncomplicated internal hemorrhoids present. Assessment and plan: Sigmoid polyp seen and excised. This would have caused his Cologuard screening to be positive. No longer a candidate for Cologuard. Next colonoscopy will be due in 5 years. No source for anemia or weight loss seen in the colon or rectum.
--- NOTE | 2025-08-05 08:42 | BOWEL_PTH ---
PATIENT: Ben Fall LOC: [facility] U#:[id number] AGE/SX: 64/M ROOM: RE08/05/[address]: Bing Alva MD : 1960 BED: DIS: 08/05/2025 SPEC #: [id number] RECD: 08/05/25 12:08 STATUS: RENE REMikhail #: [id number] PANDA: 08/05/25 08:[address]: Bing Alva DEPT: Surgical Specimen RECD BY: Sepideh Cheney ENTERED: 08/05/25 12:08 SP TYPE: Bowel OTHR DR: Kaushik Pierce, JOO Tissues: 1 - BIOPSY BOWEL Procedures: GROSS AND MICRO LEVEL 4 Comments: [id number]
[2025-08-05 09:00] VITALS: BP 118/87; PULSE 86; RESP 16; TEMP 36.2; O2SAT 99
[2025-08-05 09:30] VITALS: BP 133/83; PULSE 76; RESP 16; TEMP 36.2; O2SAT 100
--- NOTE | 2025-08-05 09:32 | W.ANESPOSTOP ---
Postoperative Evaluation Date, Time and Location Date Performed: 08/05/25 Time Performed: 09:10 Patient Location: Day Surgery Unit Vital Signs Most Recent Imported Vital Signs: Most Recent Vital Signs Temp Pulse Resp BP Pulse Ox 36.2 C L 86 16 118/87 99 08/05/25 09:00 08/05/25 09:00 08/05/25 09:00 08/05/25 09:00 08/05/25 09:00 Pain Score Most Recent Pain Score: Most Recent Pain Score Pain Level 0 08/05/25 09:00 Assessment Mental Status: Awake (Alert & Oriented to Patient Baseline) Airway and Respiratory Function: Patent airway with normal (patient baseline) respiratory exam Cardiovascular Function: Hemodynamically Stable Hydration Status: Adequately Hydrated Nausea & Vomiting: No Nausea or Vomiting Pain: Pt. Denies Any Pain Peripheral Nerve Block: Patient did not receive a nerve block
== END 2025-08-05 09:40 | disposition home or self-care (01) ==
LOC: SUR 06:50
PROVIDERS: PCP Nurse Practitioner Family; Visit Provider Surgery
PROC: (CPT 45385; principal; 2025-08-05 08:30)
DX: D50.9 Iron deficiency anemia, unspecified (principal); K70.30 Alcoholic cirrhosis of liver without ascites; D12.5 Benign neoplasm of sigmoid colon; K20.81 Other esophagitis with bleeding; K44.9 Diaphragmatic hernia without obstruction or gangrene; R19.5 Other fecal abnormalities; R63.4 Abnormal weight loss; I10 Essential (primary) hypertension
CPT/HCPCS: 45385; 43235; 88305; J2003; J2704

== ENCOUNTER 2025-10-05 17:28 | Outpatient (CLI) | payer MEDICAID, SELFPAY ==
--- NOTE | 2025-10-05 17:15 | RT.EKG_ITS ---
APPROVED REPORT Exam: Resting ECG Reason for Exam: Shortness of Breath Patient Location: O HR:104 bpm ECG Measurements Heart Rate 104 AXIS PA 146 P 86 QRSd 79 QRS -84 QT 340 T 67 QTc 448 Conclusion Sinus tachycardia...rate> 99 Probable left atrial enlargement...P >50mS, <-0.10mV V1 Inferior infarct, old...Q >35mS, II III aVF
== END 2025-10-05 17:29 | disposition home or self-care (01) ==
PROVIDERS: PCP Nurse Practitioner Family; Visit Provider Nurse Practitioner Acute Care
DX: R07.89 Other chest pain (principal)
CPT/HCPCS: 93010

== ENCOUNTER → 2025-10-05 18:04 | Outpatient (CLI) | payer MEDICAID, SELFPAY ==
--- NOTE | 2025-10-05 18:13 | DI.RAD_ITS ---
Exam(s) XR CHEST 2V PA LATERAL EXAM: XR CHEST 2V PA LATERAL CLINICAL HISTORY: shortness of breath TECHNIQUE: 2D digital imaging was performed. Two views. COMPARISON: CR,XR XR CHEST 1V IN DI DEPT from 07/18/[address] CHEST/ABD/PEL W from 04/19/2023 FINDINGS: HEART: Normal size. Aorta: Not dilated. PULMONARY VASCULATURE: Normal. MEDIASTINUM: Unremarkable. LUNGS: Hyperinflated but clear. PLEURAL SPACE: No pleural effusion or pneumothorax. BONE:Dextroscoliosis. No compression fractures. SOFT TISSUES: Unremarkable. IMPRESSION: No acute abnormality. DATA REPOSITORY: RADIATION DOSE DELIVERED:
--- NOTE | 2025-10-05 18:27 | DI.VRAD_ITS ---
PROCEDURE INFORMATION: Exam: XR Chest Exam date and time: 10/05/2025 6:06 PM Age: 65 years old Clinical indication: Shortness of breath; SOB TECHNIQUE: Imaging protocol: Radiologic exam of the chest. Views: 2 views. COMPARISON: CT CHEST/ABD/PEL W 04/19/2023 10:02 AM FINDINGS: Lungs: No consolidation. There is expansion of the bilateral lung tapia, possibly representing emphysema. Pleural spaces: No pleural effusion. No pneumothorax. Heart/Mediastinum: No cardiomegaly. Bones/joints: Unremarkable. IMPRESSION: 1. No significant consolidation. 2. Findings possibly representing emphysema. Correlate with clinical findings. Dictated and Authenticated by: Lily Navarrete MD. Orderin Ricky Mejia MD
[2025-10-05 18:39] LABS: Abs Immature Grans 0.03 10^3/uL (0.0-0.06); HCT 46.7 % (40.0-50.0); HGB 16.8 g/dL (13.5-17.5); Immature Grans % 0.4 %; MCH 31.1 pg (27.0-33.0); MCHC 36.0 % (32.0-36.0); MCV 86 fL (80-95); MPV 8.8 fL (8.0-11.0); Platelet Count 106 10^3/uL (130-400); RBC 5.41 10^6/uL (4.36-5.78); RDW 13.1 % (11.8-14.1); RDW-SD 41.0 fL; WBC 7.95 10^3/uL (4.4-10.8)
[2025-10-05 19:04] LABS: ALT 24 U/L (10-49); AST 34 U/L (<34); Albumin 5.1 g/dL (3.2-5.0); Alkaline Phosphatase 56 U/L (46-116); Anion Gap 10.9 mmol/L (3-11); BUN 14 mg/dL (9-23); Bilirubin, Total 0.80 mg/dL (0.2-1.2); CO2 22.7 mmol/L (20.0-31.0); Calcium 10.0 mg/dL (8.3-10.6); Chloride 91 mmol/L (98-107); D-Dimer 561 ng/mlFEU (<500); Glucose 133 mg/dL (74-106); Potassium 4.4 mmol/L (3.5-5.1); Sodium 125 mmol/L (136-145); Total Protein 9.2 g/dL (5.7-8.2); Troponin I 4 ng/L (<54)
== END ==
LOC: DI 18:04
PROVIDERS: PCP Nurse Practitioner Family; Visit Provider Nurse Practitioner Acute Care
DX: J43.9 Emphysema, unspecified
CPT/HCPCS: 80053; 71046; 83880; 84484; 85025; 85379